=== PATIENT | male | born 1985 | race Caucasian/White ===

== ENCOUNTER 2019-03-07 16:39 | Emergency (ER) | payer MEDICAID ==
[2019-03-07 17:14] VITALS: RESP 20
[2019-03-07] MEDS ORDERED: IBUPROFEN 600 MG TAB PO STA (17:15)
[2019-03-07] MEDS ORDERED: ACETAMINOPHEN TAB 500 MG TAB PO STA (17:15)
[2019-03-07] MEDS ORDERED: diphenhydrAMINE 25 MG CAP PO STA (17:24)
[2019-03-07] MEDS ORDERED: predniSONE 50 MG TAB PO STA (17:24)
--- NOTE | 2019-03-07 17:36 | ED ---
General Adult HPI - General Chief complaint: Upper Respiratory Infection Stated complaint: rash, URI Time Seen by Provider: 03/07/19 17:02 Source: patient, RN notes reviewed, old records reviewed Mode of arrival: ambulatory Limitations: no limitations - History of Present Illness Initial comments: 33 year male presents today for concern for worsening cough congestion. Patient states he's been trying take dpyh-hue-kgufbso medications reports worsening cough. He recently finished an antibiotic of Augmentin for sinusitis and steroids. Patient states that he seems that his cough seems to be worsening. He also complains of low-grade fevers. Patient has had no history of sick contacts. - Related Data Previous Rx's Medication Instructions Recorded Azithromycin [Zithromax Z-pack] 250 mg PO DIRECTED #6 tab 03/07/19 Gmvw-Spon-Bct 6.25-5-10Mg/5Ml 5 ml PO Q4H 3 Days #90 ml 03/07/19 [Phenergan VC with Codeine] predniSONE 50 mg PO DAILY #5 tablet 03/07/19 Allergies Allergy/AdvReac Type Severity Reaction Status Date / Time No Known Allergies Allergy Verified 03/07/19 17:14 Review of Systems ROS Statement: Those systems with pertinent positive or pertinent negative responses have been documented in the HPI. ROS Other: All systems not noted in ROS Statement are negative. Past Medical History Past Medical History: No Reported History History of Any Multi-Drug Resistant Organisms: None Reported Past Surgical History: No Surgical Hx Reported Past Psychological History: No Psychological Hx Reported Smoking Status: Never smoker Past Alcohol Use History: Occasional Past Drug Use History: None Reported General Exam - General Exam Comments Initial Comments: 33 year old male, no distress. Limitations: no limitations General appearance: alert, in no apparent distress Head exam: Present: atraumatic, normocephalic, normal inspection Eye exam: Present: normal appearance, PERRL, EOMI. Absent: scleral icterus, conjunctival injection, periorbital swelling ENT exam: Present: normal exam, mucous membranes moist Neck exam: Present: normal inspection. Absent: tenderness, meningismus, lymphadenopathy Respiratory exam: Present: normal lung sounds bilaterally. Absent: respiratory distress, wheezes, rales, rhonchi, stridor Cardiovascular Exam: Present: regular rate, normal rhythm, normal heart sounds. Absent: systolic murmur, diastolic murmur, rubs, gallop, clicks GI/Abdominal exam: Present: soft, normal bowel sounds. Absent: distended, tenderness, guarding, rebound, rigid Extremities exam: Present: normal inspection, full ROM, normal capillary refill. Absent: tenderness, pedal edema, joint swelling, calf tenderness Back exam: Present: normal inspection Neurological exam: Present: alert, oriented X3, CN II-XII intact Psychiatric exam: Present: normal affect, normal mood Course Vital Signs 03/07/19 03/07/19 17:11 18:25 Temperature 100.0 F H 99.3 F Pulse Rate 119 H 103 H Respiratory 20 20 Rate Blood Pressure 140/82 139/82 O2 Sat by Pulse 97 99 Oximetry Medical Decision Making - Medical Decision Making 33 year old male with cough, fever. Treated with augmentin for sinusitis. Patient at this time has negative flu and normal CXR. Discussed treatment for atypical bacteria with Zpack and close follow up with PCP. Discussed using steriods and cough syrup. - Lab Data Lab Results 03/07/19 Range/Units 17:10 Influenza Type A RNA Not Detected (Not Detectd) Influenza Type B (PCR) Not Detected (Not Detectd) - Radiology Data Radiology results: report reviewed Normal chest. No changes. Disposition Clinical Impression: Hives, Bronchitis Disposition: HOME SELF-CARE Condition: Good Instructions (If sedation given, give patient instructions): Acute Bronchitis (ED) Additional Instructions: Patient has a take the steroids use cough medicine as prescribed. Switching the antibiotic to azithromycin. Recommended close follow-up with her primary care physician. Patient should rest, remain hydrated. Continuing kslu-bgw-pmctzqh decongestants as well. Prescriptions: Ijbe-Ulmk-Yrz 6.25-5-10Mg/5Ml [Phenergan VC with Codeine] 5 ml PO Q4H 3 Days #90 ml predniSONE 50 mg PO DAILY #5 tablet Azithromycin [Zithromax Z-pack] 250 mg PO DIRECTED #6 tab Is patient prescribed a controlled substance at d/c from ED?: No Referrals: None,Stated [Primary Care Provider] - 1-2 days Time of Disposition: 18:16
--- NOTE | 2019-03-07 18:04 | XR ---
EXAMINATION TYPE: XR chest 2V DATE OF EXAM: 03/07/2019 COMPARISON: 09/11/2010 HISTORY: Cough TECHNIQUE: FINDINGS: Heart and mediastinum are normal. Lungs are clear. Diaphragm is normal. Bony thorax appears normal. IMPRESSION: Normal chest. No change.
[2019-03-07 18:34] VITALS: BP 139/82; PULSE 103; TEMP 99.3
== END 2019-03-07 18:25 | disposition home or self-care (01) ==
LOC: EC 16:39
DX: J40 Bronchitis, not specified as acute or chronic (principal); L50.9 Urticaria, unspecified; J32.9 Chronic sinusitis, unspecified
CPT/HCPCS: 99284; 87502; 71046; J7512

== ENCOUNTER → 2019-06-29 | Outpatient (CLI) | payer MEDICAID | END | disposition home or self-care (01) | LOC: LABWHC1 08:34 | PROVIDERS: ATTEND Pediatrics Pediatric Infectious Diseases | DX: Z03.818 Encounter for observation for suspected exposure to other biological agents ruled out (principal) | CPT/HCPCS: 87635 ==

== ENCOUNTER → 2019-07-20 | Outpatient (CLI) | payer MEDICAID | END | disposition home or self-care (01) | LOC: LABWHC1 10:32 | PROVIDERS: ATTEND Pediatrics Pediatric Infectious Diseases | DX: Z11.59 Encounter for screening for other viral diseases (principal) ==

== ENCOUNTER → 2019-07-25 | Outpatient (CLI) | payer MEDICAID | END | disposition home or self-care (01) | LOC: LABWHC1 09:44 | PROVIDERS: ATTEND Pediatrics Pediatric Infectious Diseases | DX: U07.1 COVID-19 (principal) ==

== ENCOUNTER → 2019-07-29 | Outpatient (CLI) | payer MEDICAID ==
--- NOTE | 2019-07-29 14:17 | CT ---
EXAMINATION TYPE: CT abdomen pelvis wo/w con DATE OF EXAM: 07/29/2019 COMPARISON: None. HISTORY: ab pain/diarrhea x 2wks CT DLP: 4615.2 mGycm, Automated Exposure Control for Dose Reduction was Utilized. CONTRAST: CT scan of the abdomen and pelvis is performed with oral and without and with IV Contrast, patient in jected with 100 mL of Isovue 300. FINDINGS: LUNG BASES: No significant abnormality is appreciated. LIVER/GB: Noncontrast images show liver overall heterogeneously hypodense consistent with diffuse fat ty infiltration. PANCREAS: No significant abnormality is seen. SPLEEN: No significant abnormality is seen. ADRENALS: No significant abnormality is seen. KIDNEYS: Noncontrast images show no renal calculi bilaterally. Postcontrast images show symmetric cor tical medullary uptake and excretion without hydronephrosis seen bilaterally. BOWEL: Oral contrast reaches the rectum. No suspicious small or large bowel dilatation is seen. Appen desiree within normal limits from base of cecum extending medially. Stomach is poorly distended and thus suboptimally evaluated as oral contrast has passed through the stomach and duodenal sweep at time of scanning. PROSTATE/SEMINAL VESICLES: No gross abnormality seen. LYMPH NODES: No greater than 1cm abdominal or pelvic lymph nodes are appreciated. Scattered prominen t but subcentimeter lymph nodes throughout the mesentery greatest in the right lower quadrant. For re ference one of largest lymph node measures 1.7 x 1.0 cm axial series 6 image 61. Mild mesenteric fat stranding. OSSEOUS STRUCTURES: Facet arthropathy lower lumbar spine. OTHER: Small to moderate-sized fat-containi ng bilateral inguinal hernias.. IMPRESSION: No bowel obstruction. Possible mesenteric adenitis and/or panniculitis otherwise fairly u nremarkable study.
== END | disposition home or self-care (01) ==
LOC: RADCTMAIN 11:15
PROVIDERS: ATTEND Family Medicine
DX: R10.9 Unspecified abdominal pain (principal)
CPT/HCPCS: 74178; Q9967

== ENCOUNTER 2019-11-08 11:03 | Day surgery (SDC) | payer MEDICAID ==
[2019-11-03 13:09] VITALS: BMI 43.3
[~2019-11-08 11:03] MED LIST: LACTATED RINGERS 1,000 ML IV SCH
[2019-11-08 11:30] VITALS: RESP 16; TEMP 98.5
[2019-11-08] MEDS ORDERED: LIDOCAINE 1% (10MG/ML) FOR IV START INTRADERMA ONE (11:39)
[2019-11-08] MEDS ORDERED: LIDOCAINE 1% INJ 10MG/ML (20 ML MDV) ONE (12:03)
[2019-11-08] MEDS ORDERED: PROPOFOL 10 MG/ML 20 ML VIAL IV ONE (12:03)
--- NOTE | 2019-11-08 12:24 | P.PCN ---
Date of Procedure: 11/08/19 Procedure(s) Performed: PREOPERATIVE DIAGNOSIS: GERD, abdominal pain, change in bowel habits POSTOPERATIVE DIAGNOSIS: Gastritis, normal colon PROCEDURE: 1. EGD with biopsy 2. Colonoscopy ANESTHESIA: MAC SURGEON: Harsha Hansen M.D. SPECIMENS: Antrum ENDOSCOPIC PROCEDURE: The patient was on the endoscopy table in the left decubitus position. The Olympus gastroscope was inserted into the oropharynx and passed under direct visualization to the region of the third portion of the duodenum. From that point the scope was slowly withdrawn inspecting all surfaces carefully. There were no neoplastic inflammatory or polypoid lesions throughout the duodenum. The pylorus was widely patent. The stomach was carefully inspected. There was gastritis present. A biopsy of the antrum took place to rule out H. pylori. Retroflexion revealed a normal hiatus. The esophagus was then carefully examined. There were no neoplastic inflammatory or polypoid lesions throughout the visualized esophagus. The patient was kept on the endoscopy table in the left decubitus position. The Olympus colonoscope was inserted into the anus and passed under direct visualization to the base of the cecum. The appendiceal orifice was visualized. From that point the scope was slowly withdrawn inspecting all surfaces carefully. There were no neoplastic inflammatory or polypoid lesions throughout the cecum, ascending, transverse, descending, sigmoid and rectum. There was no visible diverticulosis noted. The patient's prep was slightly suboptimal. Digital rectal examination was normal. The patient was taken to the recovery room in stable condition per anesthesia guidelines. RECOMMENDATIONS: Begin antiacid therapy. Resume diet. Follow-up colonoscopy age 52.
[2019-11-08 12:46] VITALS: BP 119/76; PULSE 85
== END 2019-11-08 13:00 | disposition home or self-care (01) ==
LOC: ORWHC2ENDO 11:03
PROVIDERS: ATTEND Surgery
DX: K29.50 Unspecified chronic gastritis without bleeding (principal); R19.4 Change in bowel habit; R10.30 Lower abdominal pain, unspecified; R19.7 Diarrhea, unspecified; K40.20 Bilateral inguinal hernia, without obstruction or gangrene, not specified as recurrent; M79.3 Panniculitis, unspecified; E66.9 Obesity, unspecified; K08.89 Other specified disorders of teeth and supporting structures; J30.2 Other seasonal allergic rhinitis; Z79.899 Other long term (current) drug therapy; Z79.811 Long term (current) use of aromatase inhibitors; Z68.42 Body mass index [BMI] 45.0-49.9, adult; Z88.0 Allergy status to penicillin
CPT/HCPCS: 88305; 45378; 43239; J2001; J2704

== ENCOUNTER → 2019-11-09 | Outpatient (CLI) | payer MEDICAID ==
--- NOTE | 2019-11-09 10:44 | FL ---
EXAMINATION TYPE: FL UGI w small bowel DATE OF EXAM: 11/09/2019 COMPARISON: CT abdomen and pelvis July 29, 2019 HISTORY: History of endoscopy and colonoscopy one day earlier presents with increasing lower abdomina l pain and worsening diarrhea per patient. TECHNIQUE: A double contrast UGI study is performed with small bowel follow through. Total 1 minute 5 seconds fluoroscopic time utilized during procedure. 39 images saved to PACS. FINDINGS: Plastics Scientist image of the abdomen shows some paucity of bowel gas especially after colonoscopy on e day earlier. Overall nonobstructive bowel gas pattern felt present. The esophagus shows satisfactory motility and emptying into the stomach. No evidence of fixed hiatal hernia or stricture noted. No suspicious intraluminal mass or diverticulum. Less than optimal distention of stomach without focal ulcer. No marked gastric wall thickening. Moder ate gastroesophageal reflux into distal one third of esophagus with some stasis noted during real-phi e performance of study. The duodenal bulb and sweep are unremarkable. The small bowel study shows normal transit to the colon in less than 30 minutes. There is normal muc osal fold pattern throughout the small bowel. There is no evidence of any stricture or filling defec t noted. The terminal ileum is difficult to visualize due to multiple overlying contrast-filled travon l loops at this level. It is felt likely within normal limits when correlating with recent CT. IMPRESSION: Moderate distal gastroesophageal reflux otherwise unremarkable study.
== END | disposition home or self-care (01) ==
LOC: RADFLMAIN 08:59
PROVIDERS: ATTEND Surgery
DX: K21.9 Gastro-esophageal reflux disease without esophagitis (principal); R10.84 Generalized abdominal pain
CPT/HCPCS: 74240; 74248

== ENCOUNTER 2020-01-24 21:20 | Inpatient (IN) | payer MEDICAID, OTHER ==
[2020-01-24] MEDS ORDERED: ACETAMINOPHEN TAB 325 MG TAB PO STA (21:54)
[2020-01-24] MEDS ORDERED: SODIUM CHLORIDE 0.9% 500 ML 500 ML IV ONE (21:56)
[2020-01-24] MEDS ORDERED: SODIUM CHLORIDE 0.9% 1,000 ML IV ONE (21:56)
--- NOTE | 2020-01-24 22:15 | ED ---
SOB HPI - General Chief Complaint: Shortness of Breath Stated Complaint: +COVID,Cough Time Seen by Provider: 01/24/20 21:44 Source: patient Mode of arrival: ambulatory Limitations: no limitations - History of Present Illness Initial Comments: 34yo male covid +, denies PMH presenting for SOB. Patient states that he has had SOB for the past few day, he states today was the worst which brought him to the ER. Patient states he feels like he cant expand his lungs, admits to sharp chest pain at times. denies leg swelling, calf pain or hemoptysis. patient endorses fevers, sore throat. Denies abdominal pain or vomiting. Pt admits to diarrhea. pt denies additional complaints. upon arrival pt hypoxic. but does not appear in significant respiratory distress. mild dyspnea with long sentences. - Related Data Home Medications Medication Instructions Recorded Confirmed Diphenox-Atrop 2.5-0.025 mg 1 tab PO TID PRN 11/03/19 01/25/20 [Lomotil] Loratadine [Claritin] 10 mg PO DAILY 11/03/19 01/25/20 Montelukast [Singulair] 10 mg PO DAILY 11/03/19 01/25/20 Metaxalone 800 mg PO HS 01/25/20 01/25/20 Omeprazole 40 mg PO DAILY 01/25/20 01/25/20 Rizatriptan Odt [Maxalt Leaf Stamper] 10 mg PO DAILY PRN 01/25/20 01/25/20 Allergies Allergy/AdvReac Type Severity Reaction Status Date / Time Penicillins Allergy Unknown Verified 11/08/19 11:28 Childhood Review of Systems ROS Statement: Those systems with pertinent positive or pertinent negative responses have been documented in the HPI. ROS Other: All systems not noted in ROS Statement are negative. Past Medical History Past Medical History: No Reported History Additional Past Medical History / Comment(s): frequent diarrhea, seasonal allergies History of Any Multi-Drug Resistant Organisms: None Reported Past Surgical History: No Surgical Hx Reported Past Anesthesia/Blood Transfusion Reactions: No Reported Reaction Past Psychological History: No Psychological Hx Reported Smoking Status: Former smoker General Exam - General Exam Comments Initial Comments: General: The patient is awake and alert Eye: +3 mm pupils are equal, round and reactive to light, extra-ocular movements are intact. No nystagmus. There is normal conjunctiva bilaterally. No signs of icterus. Ears, nose, mouth and throat: There are moist mucous membranes and no oral lesions. Neck: The neck is supple, there is no tenderness or JVD. Cardiovascular: There is a regular rate and rhythm. No murmur, rub or gallop is appreciated. Respiratory: Respirations are mildly-labored, breath sounds are equal. No wheezes, stridor. Rhonchi rales appreciated however all over lung sounds diminshed. dry cough Gastrointestinal: Soft, non-distended, non-tender abdomen without masses or organomegaly noted. There is no rebound or guarding present. Musculoskeletal: Normal ROM, no tenderness. Strength 5/5. Sensation intact. Radial and DP pulses equal bilaterally 2+. Neurological: A&O x 3. CN II-XII intact grossly, There are no obvious motor or sensory deficits. Coordination appears grossly intact. Speech is normal. Skin: Skin is warm and dry and no rashes or lesions are noted. no calf pain or LE edema. Psychiatric: Cooperative, appropriate mood & affect, normal judgment. Limitations: no limitations Course Vital Signs 01/24/20 01/24/20 01/24/20 21:35 23:39 23:44 Temperature 102.3 F H 101.7 F H Pulse Rate 102 H 99 Respiratory 18 24 23 Rate Blood Pressure 146/83 128/72 O2 Sat by Pulse 89 L 92 L Oximetry 01/25/20 01/25/20 01/25/20 01:22 03:00 04:00 Temperature 98.7 F 97.8 F Pulse Rate 77 88 58 L Respiratory 20 20 20 Rate Blood Pressure 112/74 115/65 120/68 O2 Sat by Pulse 92 L 89 L 92 L Oximetry 01/25/20 05:36 Temperature Pulse Rate 64 Respiratory 20 Rate Blood Pressure 113/80 O2 Sat by Pulse 93 L Oximetry - Reevaluation(s) Reevaluation #1: current disposition admission, signed out to Heather Abreu pending D-dimer and CMP results. 01/24/20 23:00 Medical Decision Making - Lab Data Result diagrams: 01/24/20 22:32 01/24/20 22:32 Lab Results 01/24/20 01/24/20 01/24/20 Range/Units 22:32 22:32 22:32 WBC 5.2 (3.8-10.6) k/uL RBC 5.34 (4.30-5.90) m/uL Hgb 16.2 (13.0-17.5) gm/dL Hct 46.3 (39.0-53.0) % MCV 86.6 (80.0-100.0) fL MCH 30.3 (25.0-35.0) pg MCHC 35.0 (31.0-37.0) g/dL RDW 12.5 (11.5-15.5) % Plt Count 191 (150-450) k/uL MPV 7.3 Neutrophils % 81 % Lymphocytes % 14 % Monocytes % 2 % Eosinophils % 1 % Basophils % 1 % Neutrophils # 4.2 (1.3-7.7) k/uL Lymphocytes # 0.7 L (1.0-4.8) k/uL Monocytes # 0.1 (0-1.0) k/uL Eosinophils # 0.0 (0-0.7) k/uL Basophils # 0.1 (0-0.2) k/uL PT 10.4 (9.0-12.0) sec INR 1.0 (<1.2) APTT 25.0 (22.0-30.0) sec D-Dimer 1.63 H (<0.60) mg/L FEU Sodium 136 L (137-145) mmol/L Potassium 3.4 L (3.5-5.1) mmol/L Chloride 100 (98-107) mmol/L Carbon Dioxide 30 (22-30) mmol/L Anion Gap 6 mmol/L BUN 11 (9-20) mg/dL Creatinine 0.89 (0.66-1.25) mg/dL Est GFR (CKD-EPI)AfAm >90 (>60 ml/min/1.73 sqM) Est GFR (CKD-EPI)NonAf >90 (>60 ml/min/1.73 sqM) Glucose 105 H (74-99) mg/dL Plasma Lactic Acid Nabil (0.7-2.0) mmol/L Calcium 8.5 (8.4-10.2) mg/dL Magnesium 2.4 H (1.6-2.3) mg/dL Total Bilirubin 0.9 (0.2-1.3) mg/dL AST 187 H (17-59) U/L ALT 113 H (4-49) U/L Alkaline Phosphatase 91 (38-126) U/L Lactate Dehydrogenase 3282 H (313-618) U/L C-Reactive Protein 39.1 H (<10.0) mg/L Total Protein 6.6 (6.3-8.2) g/dL Albumin 3.8 (3.5-5.0) g/dL 01/24/20 Range/Units 22:32 WBC (3.8-10.6) k/uL RBC (4.30-5.90) m/uL Hgb (13.0-17.5) gm/dL Hct (39.0-53.0) % MCV (80.0-100.0) fL MCH (25.0-35.0) pg MCHC (31.0-37.0) g/dL RDW (11.5-15.5) % Plt Count (150-450) k/uL MPV Neutrophils % % Lymphocytes % % Monocytes % % Eosinophils % % Basophils % % Neutrophils # (1.3-7.7) k/uL Lymphocytes # (1.0-4.8) k/uL Monocytes # (0-1.0) k/uL Eosinophils # (0-0.7) k/uL Basophils # (0-0.2) k/uL PT (9.0-12.0) sec INR (<1.2) APTT (22.0-30.0) sec D-Dimer (<0.60) mg/L FEU Sodium (137-145) mmol/L Potassium (3.5-5.1) mmol/L Chloride (98-107) mmol/L Carbon Dioxide (22-30) mmol/L Anion Gap mmol/L BUN (9-20) mg/dL Creatinine (0.66-1.25) mg/dL Est GFR (CKD-EPI)AfAm (>60 ml/min/1.73 sqM) Est GFR (CKD-EPI)NonAf (>60 ml/min/1.73 sqM) Glucose (74-99) mg/dL Plasma Lactic Acid Nabil 1.1 (0.7-2.0) mmol/L Calcium (8.4-10.2) mg/dL Magnesium (1.6-2.3) mg/dL Total Bilirubin (0.2-1.3) mg/dL AST (17-59) U/L ALT (4-49) U/L Alkaline Phosphatase (38-126) U/L Lactate Dehydrogenase (313-618) U/L C-Reactive Protein (<10.0) mg/L Total Protein (6.3-8.2) g/dL Albumin (3.5-5.0) g/dL Disposition Clinical Impression: Hypoxia, Pneumonia due to COVID-19 virus Disposition: ADMITTED IP TO THIS [facility] Condition: Stable Is patient prescribed a controlled substance at d/c from ED?: No Time of Disposition: 00:30 Decision to Admit Reason: Admit from EC Decision Date: 01/25/20 Decision Time: 00:30
[2020-01-24 22:41] LABS: Basophils # (A) 0.1 k/uL (0-0.2); Basophils % (A) 1 %; Eosinophils % (A) 1 %; HCT 46.3 % (39.0-53.0); HGB 16.2 gm/dL (13.0-17.5); Lymphocytes # (A) 0.7 k/uL (1.0-4.8); Lymphocytes % (A) 14 %; MCH 30.3 pg (25.0-35.0); MCV 86.6 fL (80.0-100.0); Mean Platelet Volume 7.3; Monocytes # (A) 0.1 k/uL (0-1.0); Monocytes % (A) 2 %; Neutrophils # (A) 4.2 k/uL (1.3-7.7); Neutrophils % (A) 81 %; Platelet Count 191 k/uL (150-450); RBC 5.34 m/uL (4.30-5.90); RDW 12.5 % (11.5-15.5); WBC 5.2 k/uL (3.8-10.6)
--- NOTE | 2020-01-24 22:44 | XR ---
EXAMINATION TYPE: XR chest 1V portable DATE OF EXAM: 01/24/2020 COMPARISON: 03/07/2019 HISTORY: Pneumonia. Cough. TECHNIQUE: FINDINGS: There is diffuse pulmonary interstitial edema. Heart size is fairly normal. There is no def inite pleural effusion. Bony thorax is intact. IMPRESSION: There is new pulmonary interstitial diffuse pneumonia compared to old exam. Normal heart.
[2020-01-24] MEDS: SODIUM CHLORIDE 0.9% 1,000 ML IV SCH (22:46)
[2020-01-24] MEDS ORDERED: NALOXONE 0.4 MG/ML 1 ML VIAL IV PRN (22:47)
[2020-01-24 22:52] LABS: ALT 113 U/L (4-49); AST 187 U/L (17-59); African American GFR (CKD) >90 (>60 ml/min/1.73 sqM); Albumin 3.8 g/dL (3.5-5.0); Alkaline Phosphatase 91 U/L (38-126); Anion Gap 6 mmol/L; Blood Urea Nitrogen 11 mg/dL (9-20); C Reactive Protein 39.1 mg/L (<10.0); Calcium 8.5 mg/dL (8.4-10.2); Carbon Dioxide 30 mmol/L (22-30); Chloride 100 mmol/L (98-107); Glucose 105 mg/dL (74-99); Magnesium 2.4 mg/dL (1.6-2.3); Non-African American GFR(CKD) >90 (>60 ml/min/1.73 sqM); Potassium 3.4 mmol/L (3.5-5.1); Sodium 136 mmol/L (137-145); Total Bilirubin 0.9 mg/dL (0.2-1.3); Total Protein 6.6 g/dL (6.3-8.2)
[2020-01-24] MEDS ORDERED: DEXAMETHASONE SOD PHOSPHATE 4 MG/ML 1 ML VIAL IV STA (22:53)
[2020-01-24] MEDS ORDERED: AZITHROMYCIN 500 MG in SODIUM CHLORIDE 0.9% 250 ML IVPB STA (22:53)
[2020-01-24 22:55] LABS: Prothrombin Time 10.4 sec (9.0-12.0)
[2020-01-24 22:58] LABS: D-Dimer 1.63 mg/L FEU (<0.60)
[2020-01-24 23:03] LABS: LDH 3282 U/L (313-618)
--- NOTE | 2020-01-24 23:44 | CT ---
EXAMINATION TYPE: CT chest angio for PE DATE OF EXAM: 01/24/2020 COMPARISON: None HISTORY: elevated d-dimer CT DLP: 899.8 mGycm Automated exposure control for dose reduction was used. CONTRAST: Performed with IV Contrast, patient injected with 95 mL of Isovue 370. There are 3-D post processed images. There is extensive patchy bilateral groundglass interstitial edema. Heart is top normal in size. Ther e is no pericardial effusion. There is no pleural effusion. There is some fatty replacement of the li carlos. There is normal contrast opacification of the pulmonary arteries. There are no filling defects. There are a few bilateral bronchial lymph nodes measuring up to 1 cm. There are anterior mediastinal lymph nodes that measure up to 12 mm. Thoracic aorta is intact. There is no aneurysm or dissection. Bony thorax is intact. The sternum is i ntact. IMPRESSION: No evidence of pulmonary embolism. Extensive bilateral groundglass interstitial pneumonia. mediastinal and bronchial lymph nodes likely inflammatory.
[2020-01-25] MEDS: SODIUM CHLORIDE 0.9% 1,000 ML IV SCH (07:40)
[2020-01-25] MEDS ORDERED: DIPHENOX-ATROP 2.5-0.025 MG 1 EACH TAB PO PRN (09:55)
[2020-01-25] MEDS ORDERED: SUMAtriptan succinate 50 MG TAB PO PRN (09:55)
[2020-01-25] MEDS ORDERED: PANTOPRAZOLE 40 MG TABLET PO SCH (10:00)
[2020-01-25 10:55] LABS: Ferritin 1031.7 ng/mL (22.0-322.0)
[2020-01-25] MEDS: LORATADINE 10 MG TAB PO SCH (12:31)
[2020-01-25] MEDS: ASCORBIC ACID 500 MG TAB PO SCH (12:31)
[2020-01-25] MEDS: FAMOTIDINE 20 MG TAB PO SCH ×2 (12:31→22:11)
[2020-01-25] MEDS: MONTELUKAST 10 MG TAB PO SCH (12:31)
[2020-01-25] MEDS: LACTATED RINGERS 1,000 ML IV SCH ×2 (12:32→23:32)
[2020-01-25] MEDS: methylPREDNISolone SOD SUCCI 40 MG/ML 1 ML VIAL IV SCH ×3 (12:32→23:32)
[2020-01-25] MEDS: CHOLECALCIFEROL 1,000 UNIT TAB PO SCH (12:34)
[2020-01-25] MEDS: ENOXAPARIN 120 MG/0.8 ML SYRINGE SQ SCH ×2 (16:00→22:11)
--- NOTE | 2020-01-25 17:58 | CONS ---
CONSULTATION PULMONARY/CRITICAL CARE CONSULTATION: DATE OF SERVICE: 01/25/2020 REASON FOR CONSULTATION: Shortness of breath and COVID-19 pneumonia. This is a 34-year-old gentleman who sees Dr. Valdo Cope. He presented to the emergency room on January 23 complaining of increasing shortness of breath. Apparently last week, he was not feeling well and went for a COVID test. He apparently found out that he was positive on Thursday. Since that time, he has gotten worse. The patient admits to shortness of breath particularly on exertion. In addition, he had muscle aches joint aches, headache, cough, and chest congestion. He feels like he is having a hard time expanding his lungs. The patient feels a bit better today than he did yesterday when he first came in. He is currently on O2 at 2 L. Not receiving any IV fluids. The patient also apparently admitted to some GI issues including some diarrhea. This may or may not relate to the COVID infection. HOME MEDICATIONS: Include Lomotil, Claritin, Singulair, metaxalone, omeprazole, Maxalt-[place]ver. ALLERGIES: PENICILLIN. MEDICAL HISTORY: Chronic diarrhea, migraine cephalgia, allergies, and acid reflux disease. PAST SURGICAL HISTORY: Unremarkable. FAMILY HISTORY: Unremarkable. Both mother and father healthy. SOCIAL HISTORY: Negative for alcohol or illicit drug use. He used to smoke cigarettes but does not smoke currently. OCCUPATIONAL HISTORY: Noncontributory. REVIEW OF SYSTEMS: CONSTITUTIONAL: Muscle aches, joint aches, weakness, fever. HEENT: Negative. NEUROLOGIC: Negative. CARDIOVASCULAR: Negative. PULMONARY: Shortness of breath, cough, chest congestion. GI: Diarrhea. : Negative. RHEUMATOLOGIC: Negative. IMMUNOLOGIC: Negative. ENDOCRINOLOGIC: Negative. DERMATOLOGIC: Negative. PHYSICAL EXAMINATION: VITAL SIGNS: Current vital signs are reviewed. Temperature 98.1, heart rate 77, respiratory rate 17, blood pressure 143/79, 3 L saturation 92%. Appears in no acute distress. HEENT: Examination is grossly unremarkable. NECK: Supple, full range of motion. No adenopathy. Neck veins are flat. CARDIOVASCULAR: Examination reveals regular rhythm rate. S1, S2 normal. No S3, S4, or murmur. LUNGS: Reveal a few scattered rhonchi. No wheezes or crackles. Breath sounds equal. ABDOMEN: Soft. Bowel sounds are heard. EXTREMITIES are intact. No cyanosis, clubbing, or edema. SKIN: Without rash. NEUROLOGIC: Examination is nonfocal. LABS: Reviewed. White count 5.2, hemoglobin 16.2, hematocrit 46.3, platelet count 191,000. PT/INR PTT normal. D-dimer 1.63. Sodium 136, potassium 3.4, chloride 100, CO2 30, anion gap is 6. BUN and creatinine were 11 and 0.89. Glucose 105, calcium 8.5, magnesium 2.4, ferritin 1031.7. AST 187, ALT 113, LDH is 3282. C-reactive protein 39.1. Procalcitonin level is 0.12. Microbiology is negative. A chest x-ray shows bilateral patchy airspace opacities. CT angiogram was negative for PE. It was positive for extensive bilateral ground-glass interstitial pneumonitis consistent with COVID-19 infection. Current medications are reviewed. He is currently on Tylenol, vitamin C, Zithromax, vitamin D3, Decadron, Lovenox, famotidine, lactated Ringer's, loratadine, Solu-Medrol, Singulair, Narcan, and Imitrex. ASSESSMENT: 1. COVID-19 pneumonia with mild hypoxemic respiratory failure. 2. Obesity. 3. History of migraine cephalgia. 4. Gastroesophageal reflux disease. 5. Seasonal allergies. 6. History of frequent diarrhea. PLAN: Will add some zinc to his regimen. He is currently on corticosteroids. I do not think he would be a good candidate for Remdesivir at this time. He seems to be really clinically very stable. We will continue to follow. Prognosis is guarded. A chest x- ray should be repeated in 2 or 3 days and inflammatory markers every 2 or 3 days. Additional recommendations and suggestions are forthcoming. Again, I will add some zinc to his regimen. MMODL / IJN: [id number] /
--- NOTE | 2020-01-25 23:39 | P.HPIM ---
History of Present Illness H&P Date: 01/25/20 Chief Complaint: Short of breath History of presenting complaint: This is a very pleasant 34-year-old patient of Dr. Valdo Cope. About 7 days ago at night he broke out into heavy perspiration. Developed a fever of 104. Since then progressively increasing shortness of breath. This had a cough for about 2 days. Some headaches. No changes. Had some loose stools. Feels tired and rundown. Tested positive for coronary admitted for the same. Has known chronic ALLERGIES and GERD. 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 Review of systems: GEN.: Fever tired EYES: None HEENT: None NECK: None RESPIRATORY: As above CARDIOVASCULAR: None GASTROINTESTINAL: None GENITOURINARY: None MUSCULOSKELETAL: None LYMPHATICS: None HEMATOLOGICAL: None PSYCHIATRY: None NEUROLOGICAL: None Past medical history to include: GERD, ALLERGIES Social history: Lives with his cancer. Is a security coordinator here at the hospital [facility]. Does not smoke or drink alcohol. Denies use of any recreational drugs. Family history: Reviewed, noncontributory to presentation Physical examination: VITAL SIGNS: 102.3, 102, 18, 146/83, 89% room air GENERAL: BMI 44.6, sitting on bed, but tired. EYES: Pupils equal. Conjunctiva normal. HEENT: External appearance of nose and ears normal, oral cavity grossly normal. NECK: JVD not raised; masses not palpable. HEART: First and second heart sounds are normal; no edema. LUNGS: Respiratory rate increased, decreased breath sound mild crackles. ABDOMEN: Soft, nontender, liver spleen not palpable, no masses palpable. PSYCH: Alert and oriented x3; mood and affect normal. NEUROLOGICAL: Cranial nerves grossly intact; no facial asymmetry, power and sensation grossly intact. LYMPHATICS: No lymph nodes palpable in the axilla and neck INVESTIGATIONS, reviewed in the clinical context: White count 5.2 hemoglobin 16.2 platelets 191 lymphocytes decreased at 0.7 D-dimer 1.63 potassium 3.4 creatinine 0.89 ferritin 1031 AST 187 ALT 113 LDH 3282 CRP 39.1 pro-calcitonin 0.12 EKG tracing personally reviewed by me-normal sinus rhythm Chest x-ray film personally reviewed by me-bilateral infiltrates Assessment: -Strongly suspicious for Bilateral COVID 19 pneumonia -Acute hypoxic respiratory failure -Morbid obesity BMI 44.6 -GERD -Sepsis from above -Hypokalemia Plan: Patient started on IV Solu-Medrol. Subcu Lovenox. Will be Dr. Kahn was consulted. Patient be candidate for Remdesivir-to be ordered by pulmonary Past Medical History Past Medical History: No Reported History Additional Past Medical History / Comment(s): frequent diarrhea, seasonal allergies History of Any Multi-Drug Resistant Organisms: None Reported Past Surgical History: No Surgical Hx Reported Past Anesthesia/Blood Transfusion Reactions: No Reported Reaction Past Psychological History: No Psychological Hx Reported Smoking Status: Former smoker - Past Family History Father Family Medical History: No Reported History Additional Family Medical History / Comment(s): Father is healthy Mother Family Medical History: No Reported History Additional Family Medical History / Comment(s): Mother is healthy Medications and Allergies Home Medications Medication Instructions Recorded Confirmed Type Diphenox-Atrop 2.5-0.025 mg 1 tab PO TID PRN 11/03/19 01/25/20 History [Lomotil] Loratadine [Claritin] 10 mg PO DAILY 11/03/19 01/25/20 History Montelukast [Singulair] 10 mg PO DAILY 11/03/19 01/25/20 History Metaxalone 800 mg PO HS 01/25/20 01/25/20 History Omeprazole 40 mg PO DAILY 01/25/20 01/25/20 History Rizatriptan Odt [Maxalt Airfreight Operations Agent] 10 mg PO DAILY PRN 01/25/20 01/25/20 History Allergies Allergy/AdvReac Type Severity Reaction Status Date / Time Penicillins Allergy Unknown Verified 11/08/19 11:28 Childhood Physical Exam Vitals: Vital Signs Temp Pulse Pulse Resp BP BP Pulse Ox 01/25/20 08:00 98 F 77 20 124/78 91 L 01/25/20 05:36 64 20 113/80 93 L 01/25/20 04:00 58 L 20 120/68 92 L 01/25/20 03:00 97.8 F 88 20 115/65 89 L 01/25/20 01:22 98.7 F 77 20 112/74 92 L 01/24/20 23:44 23 01/24/20 23:39 101.7 F H 99 24 128/72 92 L 01/24/20 21:35 102.3 F H 102 H 18 146/83 89 L Intake and Output 01/24/20 01/25/20 01/25/20 22:59 06:59 14:59 Other: Weight 145.15 kg Results CBC & Chem 7: 01/24/20 22:32 01/24/20 22:32 Labs: Abnormal Lab Results - Last 24 Hours (Table) 01/24/20 01/24/20 01/24/20 Range/Units 22:32 22:32 22:32 Lymphocytes # 0.7 L (1.0-4.8) k/uL D-Dimer 1.63 H (<0.60) mg/L FEU Sodium 136 L (137-145) mmol/L Potassium 3.4 L (3.5-5.1) mmol/L Glucose 105 H (74-99) mg/dL Magnesium 2.4 H (1.6-2.3) mg/dL AST 187 H (17-59) U/L ALT 113 H (4-49) U/L Lactate Dehydrogenase 3282 H (313-618) U/L C-Reactive Protein 39.1 H (<10.0) mg/L
[2020-01-26] MEDS: methylPREDNISolone SOD SUCCI 40 MG/ML 1 ML VIAL IV SCH ×3 (08:56→23:40)
[2020-01-26] MEDS: ZINC SULFATE 220 MG CAP PO SCH (08:57)
[2020-01-26] MEDS: LORATADINE 10 MG TAB PO SCH (08:57)
[2020-01-26] MEDS: FAMOTIDINE 20 MG TAB PO SCH ×2 (08:57→19:42)
[2020-01-26] MEDS: ASCORBIC ACID 500 MG TAB PO SCH (08:57)
[2020-01-26] MEDS: MONTELUKAST 10 MG TAB PO SCH (08:57)
[2020-01-26] MEDS: CHOLECALCIFEROL 1,000 UNIT TAB PO SCH (08:58)
[2020-01-26] MEDS: ENOXAPARIN 120 MG/0.8 ML SYRINGE SQ SCH ×2 (08:58→19:42)
[2020-01-26 14:07] VITALS: BMI 44.6
--- NOTE | 2020-01-26 14:20 | P.PN ---
Subjective Progress Note Date: 01/26/20 Principal diagnosis: CoVID 19 pneumonia The patient is seen today 01/26/2020 in follow-up on the regular medical floor. He was seen in consultation by Dr. Kahn yesterday. He was admitted for shortness of breath, fatigue weakness headache and cough. He felt he was having hard time expanding his lungs. He did test positive for CoVID 19 on 01/18/2020. He was outside the window for Remdesivir. Presently he is sitting up at the bedside. Awake and alert in no acute distress. He is feeling a bit better today. He is still on 2 L/m per nasal cannula. He has 0.9 normal saline at 75 ML's per hour. He's been afebrile. Hemodynamically stable. D-dimer 1.15. Influenza screen negative. He is continued on vitamin C, vitamin D, Pepcid, IV Solu-Medrol, zinc. He is on Lovenox. Objective - Vital Signs Vital signs: Vital Signs Temp 97.5 F L 01/26/20 11:00 Pulse 69 01/26/20 11:00 Resp 20 01/26/20 11:00 BP 137/82 01/26/20 11:00 Pulse Ox 94 L 01/26/20 11:00 Intake & Output 01/25/20 01/26/20 01/26/20 18:59 06:59 18:59 Intake Total 1979 1929 Balance 1979 1929 Weight 145.15 kg 145.15 kg Intake: Intake, IV Titration 780 860 Amount Lactated Ringers 1,000 ml 600 @ 75 mls/hr IV .[id number] [facility] Rx#:[id number] Sodium Chloride 0.9% 1, 780 260 000 ml @ 130 mls/hr IV . [id number] [facility] Rx#:[id number] Oral 1200 1070 Other: # Voids 2 2 - Exam GENERAL EXAM: Alert, pleasant 34-year-old gentleman, on 2 L nasal cannula, comfortable in no apparent distress. HEAD: Normocephalic. EYES: Normal reaction of pupils, equal size. NOSE: Clear with pink turbinates. THROAT: No erythema or exudates. NECK: No masses, no JVD. CHEST: No chest wall deformity. LUNGS: Equal air entry with few scattered rhonchi. CVS: S1 and S2 normal with no audible murmur, regular rhythm. ABDOMEN: No hepatosplenomegaly, normal bowel sounds, no guarding or rigidity. SPINE: No scoliosis or deformity SKIN: No rashes CENTRAL NERVOUS SYSTEM: No focal deficits, tone is normal in all 4 extremities. EXTREMITIES: There is no peripheral edema. No clubbing, no cyanosis. Peripheral pulses are intact. - Labs CBC & Chem 7: 01/24/20 22:32 01/24/20 22:32 Labs: Abnormal Lab Results - Last 24 Hours (Table) 01/26/20 Range/Units 09:19 D-Dimer 1.15 H (<0.60) mg/L FEU Microbiology - Last 24 Hours (Table) 01/24/20 22:32 Blood Culture - Preliminary Blood No Growth after 24 hours Assessment and Plan Assessment: 1 Acute hypoxic respiratory failure secondary to CoVID 19 pneumonitis. 2 Elevated inflammatory markers secondary to above 3 Chest esophageal reflux disease 4 History of migraine cephalgia. 5 Seasonal ALLERGIES 6 History of frequent diarrhea 7 Obesity Plan: The patient was seen and evaluated by Dr. Kahn He is currently stable from the pulmonary standpoint Titrate down the FiO2 as tolerated Continue the current treatment plan Repeat chest x-ray in a.m. We will continue to follow I, the cosigning physician, performed a history & physical examination of the patient. Lungs sounds with few scattered rhonchi. Maintaining good O2 saturations in the 90s on 2 L/m per nasal cannula. I discussed the assessment and plan of care with my nurse practitioner, Melissa Adame. I attest to the above note as dictated by her.
[2020-01-26] MEDS: LACTATED RINGERS 1,000 ML IV SCH (16:40)
--- NOTE | 2020-01-26 22:11 | P.PN ---
Progress Note - Text Progress Note Date: 01/26/20 Chief Complaint: Short of breath History of presenting complaint: This is a very pleasant 34-year-old patient of Dr. Valdo Cope. About 7 days ago at night he broke out into heavy perspiration. Developed a fever of 104. Since then progressively increasing shortness of breath. This had a cough for about 2 days. Some headaches. No changes. Had some loose stools. Feels tired and rundown. Tested positive for coronary admitted for the same. Has known chronic ALLERGIES and GERD. 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 Patient was detected coronavirus PCR on January 17. Admitted with COVID 19 pneumonia. Acute hypoxic respiratory failure. Started on IV Solu-Medrol and Lovenox. Today-feeling better. Appetite improving. A bit less short of breath. On 2 L nasal cannula. Has been out of bed. Review of systems: Was done for constitutional, cardiovascular, GI, pulmonary. relevant finding as above Active Medications Ascorbic Acid (Ascorbic Acid 500 Mg Tab) 1,000 mg PO DAILY [facility] Last Admin: 01/26/20 08:57 Dose: 1,000 mg Documented by: Cholecalciferol (Cholecalciferol 1,000 Unit Tab) 1,000 unit PO DAILY [facility] Last Admin: 01/26/20 08:58 Dose: 1,000 unit Documented by: Diphenoxylate HCl/Atropine (Diphenox-Atrop 2.5-0.025 Mg 1 Each Tab) 1 each PO TID PRN PRN Reason: Diarrhea Last Admin: 01/25/20 12:31 Dose: 1 each Documented by: Enoxaparin Sodium (Enoxaparin 120 Mg/0.8 Ml Syringe) 120 mg SQ Q12HR [facility] Last Admin: 01/26/20 19:42 Dose: 120 mg Documented by: Famotidine (Famotidine 20 Mg Tab) 20 mg PO BID [facility] Last Admin: 01/26/20 19:42 Dose: 20 mg Documented by: Lactated Ringer's (Lactated Ringers) 1,000 mls @ 75 mls/hr IV .[id number] [facility] Last Admin: 01/26/20 16:40 Dose: 75 mls/hr Documented by: Loratadine (Loratadine 10 Mg Tab) 10 mg PO DAILY [facility] Last Admin: 01/26/20 08:57 Dose: 10 mg Documented by: Methylprednisolone Sodium Succinate (Methylprednisolone Sod Succi 40 Mg/Ml 1 Ml Vial) 40 mg IV Q8HR [facility] Last Admin: 01/26/20 16:02 Dose: 40 mg Documented by: Montelukast Sodium (Montelukast 10 Mg Tab) 10 mg PO DAILY [facility] Last Admin: 01/26/20 08:57 Dose: 10 mg Documented by: Naloxone HCl (Naloxone 0.4 Mg/Ml 1 Ml Vial) 0.2 mg IV Q2M PRN PRN Reason: Opioid Reversal Sumatriptan Succinate (Sumatriptan Succinate 50 Mg Tab) 100 mg PO DAILY PRN PRN Reason: Migraine Headache Zinc Sulfate (Zinc Sulfate 220 Mg Cap) 220 mg PO DAILY [facility] Last Admin: 01/26/20 08:57 Dose: 220 mg Documented by: Physical examination: VITAL SIGNS: Afebrile, 69, 20, 130s over 82, 94% on 2 L GENERAL: Sitting up in bed, looks better PSYCH: Alert and oriented x3; mood and affect normal. NEUROLOGICAL: Cranial nerves grossly intact; no facial asymmetry, moving all 4 limbs. Rest of the physical exam as per nursing and pulmonary INVESTIGATIONS, reviewed in the clinical context: January 25: D-dimer 1.15, CRP 1.8 White count 5.2 hemoglobin 16.2 platelets 191 lymphocytes decreased at 0.7 D-dimer 1.63 potassium 3.4 creatinine 0.89 ferritin 1031 AST 187 ALT 113 LDH 3282 CRP 39.1 pro-calcitonin 0.12 EKG tracing personally reviewed by me-normal sinus rhythm Chest x-ray film personally reviewed by me-bilateral infiltrates Previous testing: Coronavirus PCR detected on January 17 Assessment: -Bilateral COVID 19 pneumonia-started to improve -Acute hypoxic respiratory failure-slow to respond -Morbid obesity BMI 44.6 -GERD -Sepsis from above -Hypokalemia Plan: Continue IV Solu-Medrol. Subcu Lovenox. Follow with Dr. Kahn from pulmonary.
[2020-01-27 08:57] LABS: Basophils # (A) 0.1 k/uL (0-0.2); Basophils % (A) 1 %; Eosinophils % (A) 0 %; HCT 46.7 % (39.0-53.0); HGB 15.7 gm/dL (13.0-17.5); Lymphocytes # (A) 0.8 k/uL (1.0-4.8); Lymphocytes % (A) 9 %; MCH 29.7 pg (25.0-35.0); MCHC 33.6 g/dL (31.0-37.0); MCV 88.3 fL (80.0-100.0); Mean Platelet Volume 8.1; Monocytes # (A) 0.3 k/uL (0-1.0); Monocytes % (A) 3 %; Neutrophils # (A) 6.8 k/uL (1.3-7.7); Neutrophils % (A) 84 %; Platelet Count 284 k/uL (150-450); RBC 5.29 m/uL (4.30-5.90); RDW 12.8 % (11.5-15.5); WBC 8.1 k/uL (3.8-10.6)
[2020-01-27] MEDS: LACTATED RINGERS 1,000 ML IV SCH (09:11)
[2020-01-27] MEDS: FAMOTIDINE 20 MG TAB PO SCH (09:15)
[2020-01-27] MEDS: ENOXAPARIN 120 MG/0.8 ML SYRINGE SQ SCH (09:15)
[2020-01-27] MEDS: methylPREDNISolone SOD SUCCI 40 MG/ML 1 ML VIAL IV SCH (09:15)
[2020-01-27] MEDS: ASCORBIC ACID 500 MG TAB PO SCH (09:15)
[2020-01-27] MEDS: CHOLECALCIFEROL 1,000 UNIT TAB PO SCH (09:15)
[2020-01-27] MEDS: ZINC SULFATE 220 MG CAP PO SCH (09:15)
[2020-01-27] MEDS: MONTELUKAST 10 MG TAB PO SCH (09:16)
[2020-01-27] MEDS: LORATADINE 10 MG TAB PO SCH (09:16)
--- NOTE | 2020-01-27 09:19 | XR ---
EXAMINATION TYPE: XR chest 1V portable DATE OF EXAM: 01/27/2020 COMPARISON: Prior chest x-ray 01/24/2020 HISTORY: Covid pneumonia, shortness of breath TECHNIQUE: Single frontal view of the chest is obtained. FINDINGS: Bilateral airspace disease is present. There is no pneumothorax or pleural effusion. Heart is at the upper limit of normal for size. IMPRESSION: Correlate for pneumonia.
[2020-01-27 10:58] VITALS: BP 130/89; PULSE 75; RESP 18; TEMP 97.9
--- NOTE | 2020-01-27 14:00 | P.PN ---
Subjective Progress Note Date: 01/27/20 Principal diagnosis: CoVID 19 pneumonia The patient is seen today 01/26/2020 in follow-up on the regular medical floor. He was seen in consultation by Dr. Kahn yesterday. He was admitted for shortness of breath, fatigue weakness headache and cough. He felt he was having hard time expanding his lungs. He did test positive for CoVID 19 on 01/18/2020. He was outside the window for Remdesivir. Presently he is sitting up at the bedside. Awake and alert in no acute distress. He is feeling a bit better today. He is still on 2 L/m per nasal cannula. He has 0.9 normal saline at 75 ML's per hour. He's been afebrile. Hemodynamically stable. D-dimer 1.15. Influenza screen negative. He is continued on vitamin C, vitamin D, Pepcid, IV Solu-Medrol, zinc. He is on Lovenox. The patient is seen today 01/27/2020 in follow-up on the regular medical floor. He is awake and alert in no acute distress. He is maintaining O2 saturations in the 90 on room air. He's been afebrile. Hemodynamically stable. Chest x-ray continues to show bilateral airspace disease. White count 8.1. Hemoglobin 15.7. D-dimer 1.59. He remains on Lovenox, IV Solu-Medrol, vitamin C, vitamin D, Pepcid, zinc. He is anxious to go home. Objective - Vital Signs Vital signs: Vital Signs Temp 97.9 F 01/27/20 10:29 Pulse 75 01/27/20 10:29 Resp 18 01/27/20 10:29 BP 130/89 01/27/20 10:29 Pulse Ox 96 01/27/20 11:57 Intake & Output 01/26/20 01/27/20 01/27/20 18:59 06:59 18:59 Intake Total 825 Balance 825 Weight 145.15 kg Intake: Intake, IV Titration 825 Amount Lactated Ringers 1,000 ml 825 @ 75 mls/hr IV .[id number] [facility] Rx#:[id number] Other: Voiding Method Toilet # Voids 2 - Exam GENERAL EXAM: Alert, pleasant 34-year-old gentleman, on room air, comfortable in no apparent distress. HEAD: Normocephalic. EYES: Normal reaction of pupils, equal size. NOSE: Clear with pink turbinates. THROAT: No erythema or exudates. NECK: No masses, no JVD. CHEST: No chest wall deformity. LUNGS: Equal air entry with few scattered rhonchi. CVS: S1 and S2 normal with no audible murmur, regular rhythm. ABDOMEN: No hepatosplenomegaly, normal bowel sounds, no guarding or rigidity. SPINE: No scoliosis or deformity SKIN: No rashes CENTRAL NERVOUS SYSTEM: No focal deficits, tone is normal in all 4 extremities. EXTREMITIES: There is no peripheral edema. No clubbing, no cyanosis. Peripheral pulses are intact. - Labs CBC & Chem 7: 01/27/20 08:05 01/24/20 22:32 Labs: Abnormal Lab Results - Last 24 Hours (Table) 01/26/20 01/27/20 01/27/20 Range/Units 09:19 08:05 08:05 Lymphocytes # 0.8 L (1.0-4.8) k/uL D-Dimer 1.59 H (<0.60) mg/L FEU C-Reactive Protein 1.8 H (0.0-0.8) mg/dL Microbiology - Last 24 Hours (Table) 01/24/20 22:32 Blood Culture - Preliminary Blood No Growth after 48 hours Assessment and Plan Assessment: 1 Acute hypoxic respiratory failure secondary to CoVID 19 pneumonitis. 2 Elevated inflammatory markers secondary to above 3 Chest esophageal reflux disease 4 History of migraine cephalgia. 5 Seasonal ALLERGIES 6 History of frequent diarrhea 7 Obesity Plan: The patient was seen and evaluated by Dr. Kahn Chest x-ray and labs reviewed Cleared for discharge from the pulmonary standpoint Follow-up closely with his PCP I, the cosigning physician, performed a history & physical examination of the patient. Lungs sounds with few scattered rhonchi. Maintaining good O2 saturati ons in the 90s on 2 L/m per nasal cannula. I discussed the assessment and plan of care with my nurse practitioner, Melissa Adame. I attest to the above note as dictated by her.
--- NOTE | 2020-01-28 11:00 | P.DS ---
Providers Date of admission: 01/24/20 22:57 Expected date of discharge: 01/27/20 Attending physician: Dex Khan Consults: 01/24/20 22:49 Consult Physician Routine Consulting Provider: Tony Kahn Consult Reason/Comments: hypoxic covid pneumonia Do you want consulting provider notified?: Yes Primary care physician: Valdo Cope [facility] Course: Chief Complaint: Short of breath History of presenting complaint: This is a very pleasant 34-year-old patient of Dr. Valdo Cope. About 7 days ago at night he broke out into heavy perspiration. Developed a fever of 104. Since then progressively increasing shortness of breath. This had a cough for about 2 days. Some headaches. No changes. Had some loose stools. Feels tired and rundown. Tested positive for coronary admitted for the same. Has known chronic ALLERGIES and GERD. 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 Patient was detected coronavirus PCR on January 17. Admitted with COVID 19 pneumonia. Acute hypoxic respiratory failure. Started on IV Solu-Medrol and Lovenox. Supplements including zinc Pepcid vitamin C added. Patient gradually did improve. Today-by often patient's pulse ox was 96% room air. Patient doing well. Eating well. Care was discussed with patient detail. Questions answered. Cleared by pulmonary. Patient to quarantine as directed. Discussion and discharge planning more than 35 minutes Consultation: Dr. Kahn from pulmonary Physical examination: VITAL SIGNS: Afebrile, 75, 18, 130/89, 96% on room air GENERAL: Sitting up in chair, comfortable PSYCH: Alert and oriented x3; mood and affect normal. NEUROLOGICAL: Cranial nerves grossly intact; no facial asymmetry, moving all 4 limbs. Rest of the physical exam as per nursing and pulmonary INVESTIGATIONS, reviewed in the clinical context: January 26: White count 8.1 hemoglobin 15.7 d-dimer 1.59 CRP 0.6 January 25: D-dimer 1.15, CRP 1.8 White count 5.2 hemoglobin 16.2 platelets 191 lymphocytes decreased at 0.7 D-dimer 1.63 potassium 3.4 creatinine 0.89 ferritin 1031 AST 187 ALT 113 LDH 3282 CRP 39.1 pro-calcitonin 0.12 EKG tracing personally reviewed by me-normal sinus rhythm Chest x-ray film personally reviewed by me-bilateral infiltrates Previous testing: Coronavirus PCR detected on January 17 Assessment: -Bilateral COVID 19 pneumonia- POA -Acute hypoxic respiratory failure, from pneumonia-POA, resolved -Morbid obesity BMI 44.6 -GERD -Sepsis from above -Hypokalemia Disposition: Home Patient Condition at Discharge: Stable Plan - Discharge Summary Discharge Rx Participant: No New Discharge Prescriptions: New dexAMETHasone [Dexamethasone] 6 mg PO DAILY #18 tablet Zinc Sulfate [Orazinc] 220 mg PO DAILY #30 cap Famotidine [Pepcid] 20 mg PO BID #60 tab Ascorbic Acid [Vitamin C] 1,000 mg PO DAILY #30 tab Cholecalciferol [Vitamin D3 (25 Mcg = 1000 Iu)] 1,000 unit PO DAILY #30 tab Continue Montelukast [Singulair] 10 mg PO DAILY Loratadine [Claritin] 10 mg PO DAILY Diphenox-Atrop 2.5-0.025 mg [Lomotil] 1 tab PO TID PRN PRN Reason: Diarrhea Rizatriptan Odt [Maxalt SPREADING MACHINE OPERATOR] 10 mg PO DAILY PRN PRN Reason: Migraine Headache Omeprazole 40 mg PO DAILY Metaxalone 800 mg PO HS Discharge Medication List Diphenox-Atrop 2.5-0.025 mg [Lomotil] 1 tab PO TID PRN 11/03/19 [History] Loratadine [Claritin] 10 mg PO DAILY 11/03/19 [History] Montelukast [Singulair] 10 mg PO DAILY 11/03/19 [History] Metaxalone 800 mg PO HS 01/25/20 [History] Omeprazole 40 mg PO DAILY 01/25/20 [History] Rizatriptan Odt [Maxalt SPREADING MACHINE OPERATOR] 10 mg PO DAILY PRN 01/25/20 [History] Ascorbic Acid [Vitamin C] 1,000 mg PO DAILY #30 tab 01/27/20 [Rx] Cholecalciferol [Vitamin D3 (25 Mcg = 1000 Iu)] 1,000 unit PO DAILY #30 tab 01/27/20 [Rx] Famotidine [Pepcid] 20 mg PO BID #60 tab 01/27/20 [Rx] Zinc Sulfate [Orazinc] 220 mg PO DAILY #30 cap 01/27/20 [Rx] dexAMETHasone [Dexamethasone] 6 mg PO DAILY #18 tablet 01/27/20 [Rx] Follow up Appointment(s)/Referral(s): Valdo Cope MD [Primary Care Provider] - 02/01/20 1:00 pm (This will be a [facility] visit via phone they will call before your actual visit.) Tony Kahn DO [Doctor of Osteopathic Medicine] - 03/01/20 1:00 pm Patient Instructions/Handouts: Famotidine (By mouth), Zinc Sulfate (By mouth), Ascorbic Acid (By mouth), Dexamethasone (By mouth), Cholecalciferol (By mouth), Hypoxia (GEN) Activity/Diet/Wound Care/Special Instructions: dc if ok with dr Kahn Discharge Disposition: HOME SELF-CARE
== END 2020-01-27 14:41 | disposition home or self-care (01) | DRG 871 ==
LOC: EC 21:20 → 4SSUR 22:57 → 6NMEDSUR 01-25 03:42
PROVIDERS: ADMIT Hospitalist; ATTEND Hospitalist
DX: A41.89 Other specified sepsis (principal); U07.1 COVID-19; J96.01 Acute respiratory failure with hypoxia; J12.89 Other viral pneumonia; Z68.41 Body mass index [BMI] 40.0-44.9, adult; K21.9 Gastro-esophageal reflux disease without esophagitis; E66.01 Morbid (severe) obesity due to excess calories; G43.909 Migraine, unspecified, not intractable, without status migrainosus; E87.6 Hypokalemia; J30.2 Other seasonal allergic rhinitis; Z79.01 Long term (current) use of anticoagulants; Z79.899 Other long term (current) drug therapy; Z87.891 Personal history of nicotine dependence; Z88.0 Allergy status to penicillin
CPT/HCPCS: 36415; 71045; 71275; 80053; 82728; 83605; 83615; 83735; 84145; 85025; 85379; 85610; 85730; 86140; 87040; 87502; 93005; 96361; 96365; 96375; 99285

== ENCOUNTER → 2020-02-28 | Outpatient (CLI) | payer MEDICAID ==
--- NOTE | 2020-02-28 18:00 | ECHOF ---
Referral Reason:R06.09 Dyspnea on exertion MEASUREMENTS -------- HEIGHT: 182.9 cm WEIGHT: 131.5 kg BP: RVIDd: 3.0 cm (< 3.3) IVSd: 1.1 cm (0.6 - 1.1) LVIDd: 3.6 cm (3.9 - 5.3) LVPWd: 1.2 cm (0.6 - 1.1) IVSs: 1.8 cm LVIDs: 2.1 cm LVPWs: 1.6 cm LAESV Index (A-L): 13.94 ml/m Ao Diam: 2.6 cm (2.0 - 3.7) AV Cusp: 2.1 cm (1.5 - 2.6) LA Diam: 3.1 cm (2.7 - 3.8) MV E Edinson: 1.03 m/s MV DecT: 161 ms MV A Edinson: 0.73 m/s MV E/A Ratio: 1.41 RAP: 5.00 mmHg RVSP: 13.29 mmHg FINDINGS -------- This was a technically difficult study with suboptimal views. The left ventricular size is normal. There is mild concentric left ventricular hypertrophy. Overa ll left ventricular systolic function is normal with, an EF between 55 - 60 %. The right ventricle is normal in size. The left atrial size is normal. Normal LA size by volume 22+/-6 ml/m2. The right atrial size is normal. Lumason used The aortic valve is trileaflet and appears structurally normal. The mitral valve is normal. There is trace mitral regurgitation. The tricuspid valve appears structurally normal. Trace tricuspid regurgitation present. Right mónica tricular systolic pressure is normal at < 35 mmHg. There is no pulmonic regurgitation present. The aortic root size is normal. IVC Not well visulized. There is no pericardial effusion. CONCLUSIONS -------- 1. The left ventricular size is normal. 2. There is mild concentric left ventricular hypertrophy. 3. Overall left ventricular systolic function is normal with, an EF between 55 - 60 %. 4. There is trace mitral regurgitation. 5. Trace tricuspid regurgitation present. 6. There is no pulmonic regurgitation present. 7. There is no pericardial effusion. APPLICATION SECURITY CONSULTANT: Gracy Jauregui RDCS
== END | disposition home or self-care (01) ==
LOC: RADECHMAIN 14:39
PROVIDERS: ATTEND Nurse Practitioner Adult Health
DX: I51.7 Cardiomegaly (principal)
CPT/HCPCS: 93306; Q9950

== ENCOUNTER → 2020-03-01 | Outpatient (CLI) | payer MEDICAID ==
--- NOTE | 2020-03-01 15:39 | CT ---
EXAMINATION TYPE: CT angio chest DATE OF EXAM: 03/01/2020 COMPARISON: 01/24/2020 HISTORY: 34-year-old male SOB post covid x4 weeks ago TECHNIQUE: Contiguous axial scanning of the chest performed with IV Contrast, patient injected with 8 0 mL of Isovue 370. Coronal/sagittal MIP reconstructions performed. CT DLP: 557.5 mGycm Automated exposure control for dose reduction was used. FINDINGS: Heart normal size without pericardial effusion. No flattening of the interventricular septum or reflu x of contrast into the hepatic veins. Aorta normal caliber with a convex arch vessel branching anatomy. Numerous nonenlarged mediastinal lymph nodes similar to slightly smaller from previous. Some mildly e nlarged right hilar lymph nodes remain measuring up to 1 cm. There is suboptimal contrast bolus with attenuation of 200 Hounsfield units. There is also a sesamoid al is artifact from patient's large body habitus limiting the evaluation. No large central or lobar b ranch embolus. Many of the segmental and more distal arterial branches are nondiagnostic, for example , left lower lobe axial image 74 and coronal image 103 and emboli in these locations cannot be adequa tely excluded on the basis of this exam. Hazy dependent atelectasis. There is some mosaic attenuation suggesting the right middle lobe, axial image 78 and mild diffuse bronchial wall thickening. The extensive bilateral groundglass infiltrates seen on 01/24/2020 have resolved. Visualized upper abd omen shows hepatic steatosis. Bones: No osseous destructive process. IMPRESSION: 1. SUBOPTIMAL CONTRAST BOLUS, LARGE PATIENT BODY HABITUS, AND SOME MILD BREATHING MOTION ALL LIMIT SESSMENT FOR PULMONARY EMBOLUS. NO LARGE CENTRAL OR LOBAR BRANCH EMBOLUS. MANY OF THE SEGMENTAL AND M ORE DISTAL ARTERIAL BRANCHES ARE NONDIAGNOSTIC AND EMBOLI IN THESE LOCATIONS CANNOT BE EXCLUDED ON TH E BASIS OF THIS EXAM, FOR EXAMPLE, WITHIN THE LEFT LOWER LOBE, AXIAL IMAGE 74 AND CORONAL IMAGE 103. FURTHER CLINICAL CORRELATION WILL BE NEEDED. 2. PREVIOUS COVID PNEUMONITIS HAS RESOLVED. THERE IS SOME MILD CENTRAL BRONCHIAL WALL THICKENING, MOS AIC ATTENUATION IN THE RIGHT MIDDLE LOBE, AND PROMINENT DEPENDENT ATELECTASIS. FINDINGS MAY REFLECT B RONCHITIS OR ASTHMA. CLINICALLY CORRELATE. 3. MARKED HEPATIC STEATOSIS.
== END | disposition home or self-care (01) ==
LOC: RADCTMAIN 14:59
PROVIDERS: ATTEND Internal Medicine Critical Care Medicine
DX: J98.09 Other diseases of bronchus, not elsewhere classified (principal); I26.99 Other pulmonary embolism without acute cor pulmonale; J98.11 Atelectasis; Z88.1 Allergy status to other antibiotic agents; Z88.0 Allergy status to penicillin
CPT/HCPCS: 71275; Q9967

== ENCOUNTER → 2021-09-03 | Outpatient (CLI) | payer OTHER ==
[~2021-09-03] MED LIST changes: +BEBTELOVIMAB (EUA) 175 MG/2 ML VIAL IV ONE; -LACTATED RINGERS 1,000 ML IV SCH; +SODIUM CHLORIDE 0.9% 500 ML 500 ML in EMPTY BAG 1 BAG IV PRN
[2021-09-03 14:10] VITALS: PULSE 89; RESP 16; TEMP 98.6
[2021-09-03 15:12] VITALS: BP 110/76
== END | disposition home or self-care (01) ==
LOC: PROCWHC3 13:22
PROVIDERS: ATTEND Nurse Practitioner Adult Health
DX: U07.1 COVID-19 (principal)
CPT/HCPCS: Q0222; M0222

== ENCOUNTER → 2021-11-28 | Outpatient (CLI) | payer OTHER ==
--- NOTE | 2021-11-28 12:33 | CA ---
Transthoracic Echo Report Name: Dani Cuevas Age: 36 Gender: M : 1985 Exam Date: 11/28/2021 10:12 Exam Location: [place] [facility] Ht (in): 61 Wt (lb): 320 Ordering Physician: Valod Cope MD Attending/Referring Phys: Christine Frazier [facility] Cardroom Hand Regina Ricci RDCS Procedure CPT: Indications: R00.0 tachycardia Cardiac Hx: Technical Quality: Technically difficult study Contrast 1: Lumason Total Dose (mL): 4 Contrast 2: Total Dose (mL): MEASUREMENTS (Male / Female) Normal Values 2D ECHO LV Diastolic Diameter PLAX 4.3 cm 4.2 - 5.9 / 3.9 - 5.3 cm LV Systolic Diameter PLAX 2.8 cm IVS Diastolic Thickness 1.5 cm 0.6 - 1.0 / 0.6 - 0.9 cm LVPW Diastolic Thickness 1.2 cm 0.6 - 1.0 / 0.6 - 0.9 cm LV Relative Wall Thickness 0.6 RV Internal Dim ED PLAX 3.0 cm LA Volume 35.9 cm??? 18 - 58 / 22 - 52 cm??? M-MODE Aortic Root Diameter MM 3.1 cm LA Systolic Diameter MM 3.6 cm LA Ao Ratio MM 1.2 AV Cusp Separation MM 2.0 cm DOPPLER AV Peak Velocity 119.6 cm/s AV Peak Gradient 5.7 mmHg LVOT Peak Velocity 103.7 cm/s LVOT Peak Gradient 4.3 mmHg MV Area PHT 4.1 cm??? Mitral E Point Velocity 93.5 cm/s Mitral A Point Velocity 65.1 cm/s Mitral E to A Ratio 1.4 MV Deceleration Time 186.9 ms MV E' Velocity 8.7 cm/s Mitral E to MV E' Ratio 10.7 TR Peak Velocity 162.6 cm/s TR Peak Gradient 10.6 mmHg Right Ventricular Systolic Press 15.6 mmHg FINDINGS Left Ventricle Moderately increased left ventricular wall thickness. Normal left ventricular systolic function with no obvious regional wall motion abnormalities. Left ventricular ejection fraction is estimated at 55-60 %. Right Ventricle Normal right ventricular size and function. Right ventricular systolic pressure within normal limits. Right Atrium Normal right atrial size. Left Atrium Normal left atrial size. No evidence for an atrial septal defect. Mitral Valve No mitral stenosis, regurgitation or prolapse. Aortic Valve Aortic valve not well visualized. Tricuspid Valve Mild tricuspid regurgitation.structurally normal tricuspid valve. Pulmonic Valve Pulmonic valve not well visualized. Pericardium No pericardial effusion. Aorta Normal size aortic root and proximal ascending aorta. CONCLUSIONS Technically difficult study. Lumason ECHO contrast used for improved visualization of the endocardial borders (inadequate visualization of two or more contiguous segments). 1. Normal left ventricle size and systolic function 2. Mild tricuspid regurgitation Previewed by: Dr. Terry Tapia MD (Electronically Signed) Final Date: 28 November 2021 12:32
== END | disposition home or self-care (01) ==
LOC: RADECHMAIN 09:48
PROVIDERS: ATTEND Family Medicine
DX: R00.0 Tachycardia, unspecified (principal)
CPT/HCPCS: 93306; Q9950

== ENCOUNTER → 2023-06-05 | Outpatient (CLI) | payer OTHER ==
--- NOTE | 2023-06-06 10:38 | MR ---
EXAMINATION TYPE: MR lumbar spine wo con DATE OF EXAM: 06/05/2023 9:43 PM CLINICAL INDICATION:Male, 37 years old with history of M43.16 SPONDYLOLISTHESIS, LUMBAR REGION, Low b ack pain into left side since 03-20-2023, Weakness COMPARISON: None TECHNIQUE: Multi planar, multi sequence imaging was performed utilizing: T1-weighted, T2-weighted, a nd turbo inversion recovery imaging of the lumbar spine. IV Contrast: cc . (None if empty) FINDINGS: Alignment: The lumbar vertebral bodies have preserved heights and alignment. 1. Cord: The conus medullaris and the distal spinal cord appear unremarkable with regards to their s ignal intensity and morphology. There is small caliber of the thecal sac size extending from L1 to L5 which is likely congenital. Bones/Discs: Mild degeneration changes throughout the spine with osteophyte formation and facet joint arthropathy. Intervertebral disc signal is maintained. T12-L1: No evidence of significant spinal canal stenosis or neural foraminal stenosis. L1-L2: No evidence of significant spinal canal stenosis or neural foraminal stenosis. L2-L3: Disc bulge and facet joint arthropathy result in mild spinal canal and mild to moderate bilate ral neural foraminal stenosis. L3-L4: Disc bulge and facet joint arthropathy result in mild spinal canal and moderate bilateral neur al foraminal stenosis. L4-L5: Disc bulge and facet joint arthropathy result in mild to moderate spinal canal and moderate to severe left bilateral neural foraminal stenosis. L5-S1: Disc bulge and facet joint arthropathy result in mild spinal canal and mild bilateral neural f oraminal stenosis. No significant spinal canal or neural foraminal stenosis in the remainder of the visualized levels. Other findings: None. IMPRESSION: 1. Disc bulge and facet joint arthropathy with moderate to severe left L4-L5 neural foraminal stenos is. 2. Multilevel degeneration changes throughout the remainder the spine with small caliber of thecal s ac extending from L1 through L5.
== END | disposition home or self-care (01) ==
LOC: RADMRIMAIN 21:00
PROVIDERS: ATTEND Orthopaedic Surgery
DX: M43.16 Spondylolisthesis, lumbar region (principal); M54.16 Radiculopathy, lumbar region; M47.816 Spondylosis without myelopathy or radiculopathy, lumbar region; M62.81 Muscle weakness (generalized); M99.73 Connective tissue and disc stenosis of intervertebral foramina of lumbar region; M51.36 Other intervertebral disc degeneration, lumbar region
CPT/HCPCS: 72148

== ENCOUNTER → 2024-04-28 | Outpatient (CLI) | payer OTHER ==
[2024-04-28 15:20] VITALS: BP 131/87; PULSE 85; RESP 16; TEMP 97.9
--- NOTE | 2024-04-28 15:36 | P.PAINCN ---
History of Present Illness - Reason for Consult Consult date: 04/28/24 - History of Present Illness This is 38 years old male with a chronic history of severe low back pain, patient reported that the pain started 2 years ago, after he was twisting at work(eating a pocket) he started having this back pain, and is constant increased with any activity, increased with any movement bending twisting, patient tried physical therapy without any significant benefit, and he did home exercise without any benefit, tried medication management without any significant benefit he continued to have severe low back pain, the pain is not radiated to the lower extremity, he denies any fever or night sweats, no change in the bowel movement or urination but he feels some weakness in the lower extremity, density of the pain interferes with the quality of life and with activity of daily living patient tried Lyrica 150 mg twice a day without any significant benefit and he tried methocarbamol 750 3 times a day without any benefit. Past Medical History Past Medical History: No Reported History Additional Past Medical History / Comment(s): frequent diarrhea, seasonal allergies History of Any Multi-Drug Resistant Organisms: None Reported Past Surgical History: No Surgical Hx Reported Additional Past Surgical History / Comment(s): EGD/colonoscopy Past Anesthesia/Blood Transfusion Reactions: No Reported Reaction Past Psychological History: No Psychological Hx Reported Additional Psychological History / Comment(s): Pt resides with his significant other. He is independent. Smoking Status: Former smoker Past Alcohol Use History: None Reported Additional Past Alcohol Use History / Comment(s): Pt states years ago, he would occasionally smoke a cigarette but did this very little. Past Drug Use History: None Reported - Past Family History Father Family Medical History: No Reported History Additional Family Medical History / Comment(s): Father is healthy Mother Family Medical History: No Reported History Additional Family Medical History / Comment(s): Mother is healthy Medications and Allergies Home Medications Medication Instructions Recorded Confirmed Type Diphenox-Atrop 2.5-0.025 mg 1 tab PO TID PRN 11/03/19 04/28/24 History [Lomotil] Metaxalone [Skelaxin] 800 mg PO HS 01/25/20 04/28/24 History Rizatriptan Odt [Maxalt [employer]] 10 mg PO DAILY PRN 01/25/20 04/28/24 History Ascorbic Acid [Vitamin C] 1,000 mg PO DAILY #30 tab 01/27/20 04/28/24 Rx Cholecalciferol [Vitamin D3 (25 1,000 unit PO DAILY #30 tab 01/27/20 04/28/24 Rx Mcg = 1000 Iu)] Citalopram Hydrobromide [CeleXA] 1 tab PO DAILY 04/28/24 04/28/24 History Cyclobenzaprine [Flexeril] 1 tab PO TID PRN 04/28/24 04/28/24 History Gabapentin [Neurontin] 1 capsule PO DIRECTED 04/28/24 04/28/24 History Metoprolol Tartrate 1 tab PO DAILY 04/28/24 04/28/24 History diazePAM [Valium] 5 mg PO ONCE PRN 1 Days #1 tab 04/28/24 Rx predniSONE [Deltasone] 20 mg PO BID 04/28/24 04/28/24 History Allergies Allergy/AdvReac Type Severity Reaction Status Date / Time amoxicillin Allergy Rash/Hives Verified 04/28/24 14:55 azithromycin Allergy Rash/Hives Verified 04/28/24 14:55 Penicillins Allergy Unknown Verified 04/28/24 14:55 Childhood sulfamethoxazole Allergy Rash/Hives Verified 04/28/24 14:55 [From Bactrim] trimethoprim [From Bactrim] Allergy Rash/Hives Verified 04/28/24 14:55 Physical Exam Vitals: Vital Signs Temp Pulse Resp BP 04/28/24 15:13 97.9 F 85 16 131/87 Intake and Output 04/28/24 04/28/24 04/28/24 06:59 14:59 22:59 Other: Weight 124.738 kg Physical Examinations : -Constitutiona : Cooperative , not in acute distress . -HEENT : nech : supple , no Lymphadenopathy , normal thyroid size . : eyes : no ptosis , no icterus, no photophobia . - neurologic : Cranial nerve II to XII intact , no focal neurological deffecit . -psychatric : alert , oriented X 3 , appropriate affect , intact judgment and insight . -Lymphatic : no Lymphadenopathy . - musculoskeltal : Lumber spine moter stegnth lower extremities ,thigh and legs 5/5 Right side , 5/5 Left side deep tendon reflexes : normal Knee Jerk , normal ankle Jerk lumber facet Loading Test =positive Right , positive Left Range of motion of the lumbar spine Flexion 30 degrees, extension 10 degrees strait leg raising test = positive at 30 degree bilateral Fabere test= positive Right , and positive LT . Results Comments: MRI lumbar spine 3 4 bulging disc and facet arthropathy and lumbar spinal stenosis and bilateral neural foraminal stenosis, L4-5 bulging disc and facet arthropathy and spinal canal stenosis and bilateral foraminal stenosis L5-S1 lumbar bulging disc and facet joint arthropathy and lumbar spinal stenosis Assessment and Plan Plan: Assessment and plan= chronic low back pain secondary to=1- lumbar spinal stenosis,2- lumbar spondylosis with lumbar facet arthropathy . 3- lumbar foraminal stenosis, 4- lumbar bulging disc disease. Continue to have severe low back pain after medication management and after physical therapy Patient could benefit from lumbar epidural steroid injection at L4-5 level. Procedure risk and benefit and alternative discussed with the patient he agreed with the proceeding Time with Patient: Greater than 30 PQRS Measure Charge Sheet Measure #130: Documentation of Current Meds in Medical Chart: Patient's medications documented in chart Measure #226: Tobacco Use: Screen & Cessation Intervention: Pt not a tobacco user Measure #111: Pneumonia Vaccination: Pneumococcal vaccine NOT administered or previously given Measure #47: Advance Care Plan: Advance care planning discussed & documented, plan or surrogate given Measure #412: Opioid Treatment Agreement: No documentation of signed opioid treatment agreement Measure #408: Opioid Therapy Follow-up Evaluation: Patient had f/u eval minimum every 3 months during opioid therapy Measure #317: Preventitive Care & Scrn High Bld Press & F/U: Normal blood pressure, f/u not required Measure #128: Body Mass Index (BMI) Screening & Follow-up: BMI documented ABOVE normal parameters - f/u documented Measure #131: Pain Assessment & Follow-up: Pain positive & plan documented, Follow-up scheduled Measure #431: Unhealthy Alcohol Use Preventative Care & Scrn: Patient not identified as an unhealthy alcohol user Mode of Arrival: Ambulatory - Pain Location Right Lower Posterior Back Non-Pharmacological Interventions: Position/Reposition Pharmacological Interventions: Discuss Pain Med Options PQRS Narrative: Smoking Status Never smoker Blood Pressure 131/87 Pain Intensity [Right Lower 6 Posterior Back] Scale Used Numeric (1 - 10) Hx Alcohol Use (MH) No Home Medications: Ambulatory Orders Diphenox-Atrop 2.5-0.025 mg [Lomotil] 1 tab PO TID PRN 11/03/19 Metaxalone [Skelaxin] 800 mg PO HS 01/25/20 Rizatriptan Odt [Maxalt [employer]] 10 mg PO DAILY PRN 01/25/20 Ascorbic Acid [Vitamin C] 1,000 mg PO DAILY #30 tab 01/27/20 Cholecalciferol [Vitamin D3 (25 Mcg = 1000 Iu)] 1,000 unit PO DAILY #30 tab 01/27/20 Citalopram Hydrobromide [CeleXA] 1 tab PO DAILY 04/28/24 Cyclobenzaprine [Flexeril] 1 tab PO TID PRN 04/28/24 Gabapentin [Neurontin] 1 capsule PO DIRECTED 04/28/24 Metoprolol Tartrate 1 tab PO DAILY 04/28/24 diazePAM [Valium] 5 mg PO ONCE PRN 1 Days #1 tab 04/28/24 predniSONE [Deltasone] 20 mg PO BID 04/28/24
== END ==
LOC: PNWHC3 14:10
PROVIDERS: ATTEND Specialist
DX: M48.061 Spinal stenosis, lumbar region without neurogenic claudication (principal); M47.816 Spondylosis without myelopathy or radiculopathy, lumbar region; M51.360 Other intervertebral disc degeneration, lumbar region with discogenic back pain only; G89.29 Other chronic pain; Z88.0 Allergy status to penicillin; Z88.1 Allergy status to other antibiotic agents; Z88.2 Allergy status to sulfonamides
CPT/HCPCS: 99211

== ENCOUNTER → 2024-05-17 | Outpatient (CLI) | payer OTHER ==
--- NOTE | 2024-05-17 20:49 | MR ---
INDICATION: Patient age:Male; 38 years old; Reason for study: R10.30, M54.16, M54.50; [facility]. COMPARISONS: MR lumbar spine 06/05/2023. TECHNIQUE: Multi planar, multi sequence imaging was performed utilizing: T1-weighted, T2-weighted, a nd turbo inversion recovery imaging of the lumbar spine. The patient was not given contrast. FINDINGS: The lumbar vertebral bodies do have preserved heights and alignment. Minimal multilevel d isc desiccation is present. Congenital small caliber of the thecal sac size extending from L1 to L5. No abnormal STIR signal. The conus medullaris and the distal spinal cord do appear unremarkable with regards to their signal intensity and morphology. T12-L1: No evidence of significant spinal canal stenosis or neural foraminal stenosis. L1-L2: No evidence of significant spinal canal stenosis or neural foraminal stenosis. L2-L3: Disc bulge and facet joint arthropathy result in mild to moderate central canal stenosis. Mild left and [id number] right neural foraminal stenosis. L3-L4: Disc bulge and facet joint arthropathy result in mild to moderate central canal stenosis. Mode rate bilateral neural foraminal stenosis. L4-L5: Disc bulge and facet joint arthropathy result in mild central canal stenosis. Moderate bilater al neural foraminal stenosis. L5-S1: Minimal broad-based disc bulge without significant effacement of the anterior thecal sac. No s ignificant central canal stenosis. Bilateral facet arthropathy with minimal bilateral neural foramina l stenosis. Other significant findings: None. IMPRESSION: Similar multilevel disc degeneration with associated osteoarthritic changes from prior MRI 06/05/2023. No disc herniation. [facility], , 05/17/2024 8:46 PM
== END | disposition home or self-care (01) ==
LOC: RADMRIMAIN 19:24
PROVIDERS: ATTEND Orthopaedic Surgery
DX: M47.26 Other spondylosis with radiculopathy, lumbar region (principal); M51.16 Intervertebral disc disorders with radiculopathy, lumbar region; R10.30 Lower abdominal pain, unspecified
CPT/HCPCS: 72148

== ENCOUNTER 2024-05-19 07:51 | Day surgery (SDC) | payer OTHER ==
[2024-05-19] MEDS ORDERED: LACTATED RINGERS 1,000 ML IV SCH (09:18)
[2024-05-19 09:36] VITALS: TEMP 97.4
[2024-05-19] MEDS ORDERED: methylPREDNISolone ACETATE 80 MG/ML 1 ML VIAL ONE (10:22)
[2024-05-19] MEDS ORDERED: IOPAMIDOL M300 15ML VIAL ONE (10:22)
--- NOTE | 2024-05-19 10:42 | P.PCN ---
Description of Procedure: PREOPERATIVE DIAGNOSIS: 1- Lumbar Degenerative Disc Diseases 2-Lumbar spondylosis with Facet arthropathy without myelopathy. 3-lumbar spinal stenosis POSTOPERATIVE DIAGNOSIS: 1-lumbar degenerative disc disease. 2-lumbar spondylosis with facet arthropathy without myelopathy. 3-lumbar spinal stenosis. PROCEDURE Injection of radio contrast material into L4-5 interspace, interpretation of epidurogram, injection of steroid at L4- 5 epidural space under fluoroscopic guidance. ANESTHESIA: Lidocaine 1% subcutaneously. In OR continuous pulse ox, EKG, blood pressure and verbal communication was maintained with the patient. EBL: Minimal PROCEDURE INDICATION: Before the procedure were discussed with the patient detailed procedure, alternatives, complications including infection, bleeding, nerve damage, paralysis all of which could be permanent. Patient understands and all questions were answered. PROCEDURE DESCRIPTION : After getting consent, patient in OR in prone position. Back was prepped with chlorhexidine and draped in sterile fashion. After injecting 10 mL of 1% lidocaine subcutaneously, a 20-gauge Tuohy needle was introduced at L4 5 interspace with loss of resistance technique using a syringe filled with air. Negative CSF, negative blood, negative paresthesia. Needle position was confirmed with AP and lateral view of the fluoroscope. After repeat negative aspiration 2 mL of Omnipaque 200 water soluble contrast was injected. Contrast was noted in the epidural space. No contrast was noted into intrathecal or intravascular space. After repeat negative aspiration 6 mL solution was injected intermittently which consists of 5 mL of preservative-free normal saline mixed with 1 mL of 80 mg Depo-Medrol. Needle was withdrawn intact. Skin was cleansed and Band-Aids was applied. DISPOSITION / PLANS: The patient tolerated the procedure well. No complication. The patient was placed in a supine position and transferred to the recovery area in a stable condition for observation. There was no evidence of lower extremity motor or sensory deficit after the procedure. Patient was discharged from the recovery room after meeting discharge criteria. Home discharge instructions were given to the patient by the staff. The patient was reexamined prior to discharge. The patient will schedule a follow up in the clinic in 2-4 weeks.
--- NOTE | 2024-05-19 10:44 | FL ---
EXAMINATION TYPE: FL guided pain mgmt statistic Intraoperative/procedural fluoroscopic services were provided. CLINICAL INDICATION:Male, 38 years old with history of LUMBAR EPI; , [facility] FINDINGS: Single fluoroscopic image demonstrating lumbar epidural injection. No radiographic evidence for compl ication. Total fluoroscopy time is 8.3 seconds. DAP: [id number] mGym2 Please see the operative/procedural note for further details. [facility], , 05/19/2024 10:41 AM
[2024-05-19 11:07] VITALS: BP 116/75; PULSE 85; RESP 16
== END 2024-05-19 11:08 | disposition home or self-care (01) ==
LOC: ORPAIN 07:51
PROVIDERS: ATTEND Pain Medicine Interventional Pain Medicine
DX: M48.061 Spinal stenosis, lumbar region without neurogenic claudication (principal); M47.816 Spondylosis without myelopathy or radiculopathy, lumbar region; M51.369 Other intervertebral disc degeneration, lumbar region without mention of lumbar back pain or lower extremity pain; Z88.0 Allergy status to penicillin; Z88.2 Allergy status to sulfonamides; Z88.1 Allergy status to other antibiotic agents
CPT/HCPCS: 62323; Q9967; J1010

== ENCOUNTER 2024-05-25 12:17 | Emergency (ER) | payer OTHER ==
--- NOTE | 2024-05-25 13:00 | ED ---
Back Pain HPI - General Chief Complaint: Back Pain/Injury Stated Complaint: back pain, headache Time Seen by Provider: 05/25/24 12:59 Source: patient, RN notes reviewed, old records reviewed Limitations: no limitations - History of Present Illness Initial Comments: 38-year-old male presented to ER for evaluation of back pain. Patient has known lumbar degenerative disc disease with lumbar spinal canal stenosis and is following up with . Patient states on 05-19-2024 he underwent lumbar spine epidural for pain control. Upon further chart review, patient received Depo-Medrol injection. Patient states since injection he has been noticing an increase in pain and a headache. He states the headache does relief with laying supine and increases with ambulation and sitting up. He states it is a pressure headache. He admits to mild nausea given pain but denies any visual disturbances, lightheadedness, dizziness, vomiting. He has tried to drink plenty of water and caffeine without relief of symptoms. He states he has been wearing his hat tighter than normal to help with discomfort. Patient also reports an increase in back pain since injections. Patient does report his legs will go "numb" especially with ambulation and while at work. 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 He states he will sit down and this will improve. Patient does report mild radiation of pain to left lower extremity. He denies any bowel or bladder incontinence, saddle paresthesias, fevers or history of IV drug abuse. Patient called orthopedics and pain management today who told him to come to the emergency department for possible blood patch. Patient has no other complaints at this time. - Related Data Home Medications Medication Instructions Recorded Confirmed Diphenox-Atrop 2.5-0.025 mg 1 tab PO TID PRN 11/03/19 05/19/24 [Lomotil] Metaxalone [Skelaxin] 800 mg PO HS 01/25/20 05/19/24 Rizatriptan Odt [Maxalt PAVING [employer]OR] 10 mg PO DAILY PRN 01/25/20 05/19/24 Citalopram Hydrobromide [CeleXA] 1 tab PO DAILY 04/28/24 05/19/24 Cyclobenzaprine [Flexeril] 1 tab PO TID PRN 04/28/24 05/19/24 Gabapentin [Neurontin] 1 capsule PO DIRECTED 04/28/24 05/19/24 Metoprolol Tartrate 1 tab PO DAILY 04/28/24 05/19/24 diazePAM [Valium] 10 mg PO ONCE PRN 05/19/24 05/19/24 Previous Rx's Medication Instructions Recorded Ascorbic Acid [Vitamin C] 1,000 mg PO DAILY #30 tab 01/27/20 Cholecalciferol [Vitamin D3 (25 1,000 unit PO DAILY #30 tab 01/27/20 Mcg = 1000 Iu)] Allergies Allergy/AdvReac Type Severity Reaction Status Date / Time amoxicillin Allergy Rash/Hives Verified 05/25/24 12:28 azithromycin Allergy Rash/Hives Verified 05/25/24 12:28 Penicillins Allergy Unknown Verified 05/25/24 12:28 Childhood sulfamethoxazole Allergy Rash/Hives Verified 05/25/24 12:28 [From Bactrim] trimethoprim [From Bactrim] Allergy Rash/Hives Verified 05/25/24 12:28 Review of Systems ROS Statement: Those systems with pertinent positive or pertinent negative responses have been documented in the HPI. ROS Other: All systems not noted in ROS Statement are negative. Past Medical History Past Medical History: No Reported History Additional Past Medical History / Comment(s): frequent diarrhea, seasonal allergies History of Any Multi-Drug Resistant Organisms: None Reported Past Surgical History: No Surgical Hx Reported Additional Past Surgical History / Comment(s): EGD/colonoscopy Past Anesthesia/Blood Transfusion Reactions: No Reported Reaction Past Psychological History: No Psychological Hx Reported Smoking Status: Former smoker Past Alcohol Use History: None Reported Past Drug Use History: None Reported - Past Family History Father Family Medical History: No Reported History Additional Family Medical History / Comment(s): Father is healthy Mother Family Medical History: No Reported History Additional Family Medical History / Comment(s): Mother is healthy General Exam Limitations: no limitations Course Vital Signs 05/25/24 05/25/24 12:27 14:42 Temperature 98.3 F Pulse Rate 90 67 Respiratory 18 20 Rate Blood Pressure 109/64 O2 Sat by Pulse 98 99 Oximetry - Reevaluation(s) Reevaluation #1: 05/25/24 14:47 Patient reevaluated. Patient resting comfortably on stretcher no signs of acute distress. Patient reporting headache has resolved. Low back pain is has improved. Patient feels comfortable with discharge at this time. Medical Decision Making - Medical Decision Making Was pt. sent in by a medical professional or institution (, PA, DRYWALL APPLICATION SUPERVISOR, urgent care, hospital, or senior living...) When possible be specific @ -[No] Did you speak to anyone other than the patient for history (EMS, parent, family, police, friend...)? What history was obtained from this source @ -[No] Did you review nursing and triage notes (agree or disagree)? Why? @ -[I reviewed and agree with nursing and triage notes] Were old charts reviewed (outside hosp., previous admission, EMS record, old EKG, old radiological studies, urgent care reports/EKG's, senior living records)? Report findings @ -Yes, I reviewed procedure note completed on 05-19-2024. Patient had epidural injection completed. Patient was injected with Depo-Medrol. I also reviewed MRI completed on 05 17 24 showing similar multilevel disc degeneration associate with osteoarthritic changes from prior MRI completed 06-05-2023. No disc herniation. Differential Diagnosis (chest pain, altered mental status, abdominal pain women, abdominal pain men, vaginal bleeding, weakness, fever, dyspnea, syncope, headache, dizziness, GI bleed, back pain, seizure, CVA, palpatations, mental health, musculoskeletal)? @ -Differential Back Pain:Strain, zoster, cauda equina syndrome, epidural abscess, vertebral osteomyelitis, discitis, fracture, subluxation, disc herniation, DJD, spinal stenosis, dissection, AAA, pancreatitis, peptic ulcer disease, pyelonephritis, kidney stone, this is not meant to be an all-inclusive list. EKG interpreted by me (3pts min.). @ -[None done] X-rays interpreted by me (1pt min.). @ -[None done] CT interpreted by me (1pt min.). @ -[CT lumbar spine showing mild degenerative disc disease at L2-L3 and L3 and L4. Eccentric disc bulge at L4-L5 level on the left compromising the left lateral rectus and possibly at the neuroforamina. Minimal spinal canal stenosis at L3-L4. Facet arthropathy at the L4-L5 level on the left.] U/S interpreted by me (1pt. min.). @ -[None done] What testing was considered but not performed or refused? (CT, X-rays, U/S, labs)? Why? @ -[None] What meds were considered but not given or refused? Why? @ -[None] Did you discuss the management of the patient with other professionals (professionals i.e. , PA, DRYWALL APPLICATION SUPERVISOR, lab, RT, psych nurse, psychiatric social worker supervisor, supervisor inspection department, teacher, accounts officer, human services case manager)? Give summary @ -[No] Was smoking cessation discussed for >3mins.? @ -[No] Was critical care preformed (if so, how long)? @ -[No] Were there social determinants of health that impacted care today? How? (Homelessness, low income, unemployed, alcoholism, drug addiction, transportation, low edu. Level, literacy, decrease access to med. care, alf, rehab)? @ -[No] Was there de-escalation of care discussed even if they declined (Discuss DNR or withdrawal of care, Hospice)? DNR status @ -[No] What co-morbidities impacted this encounter? (DM, HTN, Smoking, COPD, CAD, Cancer, CVA, ARF, Chemo, Hep., AIDS, mental health diagnosis, sleep apnea, morbid obesity)? @ -Back pain Was patient admitted / discharged? Hospital course, mention meds given and route, prescriptions, significant lab abnormalities, going to OR and other pertinent info. @ -Discharge. Undiagnosed new problem with uncertain prognosis? @ -[No] Drug Therapy requiring intensive monitoring for toxicity (Heparin, Nitro, Insulin, Cardizem)? @ -[No] Were any procedures done? @ -[No] Diagnosis/symptom? @ -[default] Acute, or Chronic, or Acute on Chronic? @ -[default] Uncomplicated (without systemic symptoms) or Complicated (systemic symptoms)? @ -[default] Side effects of treatment? @ -[No] Exacerbation, Progression, or Severe Exacerbation? @ -[No] Poses a threat to life or bodily function? How? (Chest pain, USA, OR, pneumonia, PE, COPD, DKA, ARF, appy, cholecystitis, CVA, Diverticulitis, Homicidal, Suicidal, threat to staff... and all critical care pts) @ -[No] - Lab Data Result diagrams: 05/25/24 13:38 05/25/24 13:38 Lab Results 05/25/24 05/25/24 Range/Units 13:38 13:38 WBC 9.2 (3.8-10.6) k/uL RBC 5.38 (4.30-5.90) m/uL Hgb 16.5 (13.0-17.5) gm/dL Hct 49.2 (39.0-53.0) % MCV 91.4 (80.0-100.0) fL MCH 30.6 (25.0-35.0) pg MCHC 33.5 (31.0-37.0) g/dL RDW 12.6 (11.5-15.5) % Plt Count 228 (150-450) k/uL MPV 6.9 Neutrophils % 67 % Lymphocytes % 26 % Monocytes % 5 % Eosinophils % 1 % Basophils % 0 % Neutrophils # 6.2 (1.3-7.7) k/uL Lymphocytes # 2.3 (1.0-4.8) k/uL Monocytes # 0.5 (0-1.0) k/uL Eosinophils # 0.1 (0-0.7) k/uL Basophils # 0.0 (0-0.2) k/uL Sodium 137 (137-145) mmol/L Potassium 4.0 (3.5-5.1) mmol/L Chloride 98 (98-107) mmol/L Carbon Dioxide 30 (22-30) mmol/L Anion Gap 9 mmol/L BUN 14 (9-20) mg/dL Creatinine 0.66 (0.66-1.25) mg/dL Est GFR (CKD-EPI)AfAm >90 (>60 ml/min/1.73 sqM) Est GFR (CKD-EPI)NonAf >90 (>60 ml/min/1.73 sqM) Glucose 88 (74-99) mg/dL Calcium 9.5 (8.4-10.2) mg/dL Total Bilirubin 0.7 (0.2-1.3) mg/dL AST 25 (17-59) U/L ALT 25 (4-49) U/L Alkaline Phosphatase 91 (38-126) U/L Total Protein 6.9 (6.3-8.2) g/dL Albumin 4.6 (3.5-5.0) g/dL Disposition Clinical Impression: Back pain, chronic, Headache Disposition: HOME SELF-CARE Condition: Stable Instructions (If sedation given, give patient instructions): Acute Low Back P ain (ED) Additional Instructions: Follow-up with pain management and Dr. Gutierrez. Return to the ER for any new or worsening concerns. Is patient prescribed a controlled substance at d/c from ED?: No Referrals: Valdo Cope MD [Primary Care Provider] - 1-2 days Dandy Gutierrez DO [Doctor of Osteopathic Medicine] - 1-2 days Time of Disposition: 14:47
[2024-05-25] MEDS: SODIUM CHLORIDE 0.9% 1,000 ML IV ONE (13:36)
[2024-05-25] MEDS: ACETAMINOPHEN TAB 325 MG TAB PO STA (13:37)
[2024-05-25 13:53] LABS: Basophils % (A) 0 %; Eosinophils # (A) 0.1 k/uL (0-0.7); Eosinophils % (A) 1 %; HCT 49.2 % (39.0-53.0); HGB 16.5 gm/dL (13.0-17.5); Lymphocytes # (A) 2.3 k/uL (1.0-4.8); Lymphocytes % (A) 26 %; MCH 30.6 pg (25.0-35.0); MCHC 33.5 g/dL (31.0-37.0); MCV 91.4 fL (80.0-100.0); Mean Platelet Volume 6.9; Monocytes # (A) 0.5 k/uL (0-1.0); Monocytes % (A) 5 %; Neutrophils # (A) 6.2 k/uL (1.3-7.7); Neutrophils % (A) 67 %; Platelet Count 228 k/uL (150-450); RBC 5.38 m/uL (4.30-5.90); RDW 12.6 % (11.5-15.5); WBC 9.2 k/uL (3.8-10.6)
[2024-05-25 13:55] LABS: ALT 25 U/L (4-49); AST 25 U/L (17-59); African American GFR (CKD) >90 (>60 ml/min/1.73 sqM); Albumin 4.6 g/dL (3.5-5.0); Alkaline Phosphatase 91 U/L (38-126); Anion Gap 9 mmol/L; Blood Urea Nitrogen 14 mg/dL (9-20); Calcium 9.5 mg/dL (8.4-10.2); Carbon Dioxide 30 mmol/L (22-30); Chloride 98 mmol/L (98-107); Glucose 88 mg/dL (74-99); Non-African American GFR(CKD) >90 (>60 ml/min/1.73 sqM); Sodium 137 mmol/L (137-145); Total Bilirubin 0.7 mg/dL (0.2-1.3); Total Protein 6.9 g/dL (6.3-8.2)
[2024-05-25] MEDS: METOCLOPRAMIDE 5 MG/ML 2 ML VIAL IVP STA (14:12)
[2024-05-25] MEDS: diphenhydrAMINE 50 MG/ML 1 ML VIAL IVP STA (14:12)
--- NOTE | 2024-05-25 14:17 | CT ---
EXAMINATION TYPE: CT brain wo con DATE OF EXAM: 05/25/2024 COMPARISON: None CLINICAL INDICATION: Male, 38 years old with history of headache s/p epidural 05/19; [facility], HEADACHE CT DLP: 1097 mGycm Automated exposure control for dose reduction was used. Findings: The ventricles, basal cisterns and sulci over the convexities are within normal limits and there is n o mass effect or shift of midline structures. No abnormal density is seen throughout the brain parenchyma and there is no acute intra or extra-axia l hemorrhage. The posterior fossa including the brainstem, fourth ventricle and cerebellar pontine angles appear no rmal. Intraorbital contents appear normal and symmetric. Visualized paranasal sinuses and mastoid air cells are well aerated. The calvarium is intact. IMPRESSION: No significant abnormality seen. There is no acute bleed or mass effect. [facility], , 05/25/2024 2:14 PM
--- NOTE | 2024-05-25 14:23 | CT ---
EXAMINATION TYPE: CT lumbar spine wo con DATE OF EXAM: 05/25/2024 2:07 PM COMPARISON: None CLINICAL INDICATION: Male, 38 years old with history of back pain s/p epidural; [facility], BACK PAIN TECHNIQUE: Unenhanced CT of the lumbar spine was performed. Bone and soft tissue window settings are submitted as well as coronal and sagittal reconstructions. CT DLP: [address] CTDI: mGy Automated exposure control for dose reduction was used. FINDINGS: The lumbar vertebral segments are normal in height and alignment and there is no fracture or subluxat ion. There is mild degenerative disease at the L2-3 and L3-4 level where there is mild disc space narrowin g and spondylosis.. There is a broad-based eccentric disc bulge at the L4-5 disc to the left of midline mildly compromisi ng the left lateral recess and possibly the left L4-5 neural foramina. At the L3-4 level, secondary to circumferential disc bulge and mild thickening of ligamentum flavum, there is a minimal spinal stenosis. The visualized sacrum and SI joints are normal. There is mild facet arthropathy at the L4-5 level on the left. IMPRESSION: 1. Mild degenerative disease at the L2-3 and L3-4 levels 2. Eccentric disc bulge at the L4-5 level on the left compromising the left lateral recess and possib ly the neuroforamina as described above. 3. Minimal spinal stenosis at the L3-4 level. 4. Facet arthropathy at the L4-5 level on the left. [facility], Workstation: MILAN 05/25/2024 2:21 PM
[2024-05-25 14:42] VITALS: RESP 20
[2024-05-25 15:01] VITALS: BP 126/78; PULSE 86; TEMP 98.1
== END 2024-05-25 15:01 | disposition home or self-care (01) ==
LOC: EC 12:17
DX: G89.29 Other chronic pain (principal); M54.9 Dorsalgia, unspecified; R51.9 Headache, unspecified; Z88.0 Allergy status to penicillin; Z88.1 Allergy status to other antibiotic agents; Z88.2 Allergy status to sulfonamides; Z87.891 Personal history of nicotine dependence
CPT/HCPCS: 36415; 80053; 85025; 72131; 70450; 99284; 96374; 96375; J1200; J2765

== ENCOUNTER → 2024-06-06 | Outpatient (CLI) | payer OTHER ==
[2024-06-06 13:57] VITALS: BP 123/84; PULSE 91; RESP 16
--- NOTE | 2024-06-06 15:25 | P.PAINPG ---
PQRS Measure Charge Sheet Comment: A 38 yr old male with a history of severe and chronic LBP secondary to radiu=culopathy, spondylosis with facet arthropathy without myelopathy presents today for evaluation s/p DAVID L4-L5 #1. Pt states he experienced 75% pain relief x 2 wks s/p procedure. Pain level is provoked at 1 /10 in intensity, constant, predominantly axial, localized in the lumbar spine, dull in character without shooting pain. Pain is provoked by bending. Pain is alleviated with injections, physician guided home exercises 5-6 times weekly since late Mar 2024, heat, medications, repositioning and rest. Interventional pain procedures completed include DAVID L4-L5 x1 Patient is currently on Neurontin, Flexeril Patient denies any side effects of the medication(s), denies excessive drowsiness or sleepiness, denies suicidal ideation and reports that the current pain medication is helping to control the pain and improve activities of daily living. Patient denies any motor or sensory deficits. Patient denies any fever or night sweats, denies any change in the bowel movements or urination. Physical Examination: -Constitutional: Cooperative. Not in acute distress . - Neurologic: Cranial nerve II to XII intact. No focal neurological deficits. - Psychatric: Alert & oriented x 3. Matching mood & appropriate affect. Judgment and insight intact. - Musculoskeletal: Cervical spine: Muscle bulk/ tone/ strength in the bilateral upper extremities normal Vertebral body tenderness to palpation over Spurling test positive Distraction test positive Facet loading test positive TTP Thoracic spine Muscle bulk / tone/ strength in the bilateral paraspinal muscles normal Vertebral body tender to palpation over Facet loading test positive TTP Lumbar spine: Motor bulk/ tone/ strength lower extremities , thigh and legs : 5/5 Deep tendon reflexes : Normal Knee Jerk. Normal Ankle Jerk . Vertebral body tenderness to palpation over Subramanian Test positive BL L4-L5 Lumbar Facet Loading Test positive Straight Leg Raise: positive at 30 degrees right side/ left side Gaenslen's Test positive Sacral spine : Severe tenderness over the Sacroiliac joint: right side / left side Range of motion: Flexion of the lumbar spine <60 degrees Range of motion: Extension of the lumbar spine <20 degrees Gaenslen's Test positive right side / left side Crista test: positive right side / left side Thigh Thrust Test positive right side / left side Sacral Thrust Test positive right side / left side Assessment and plan: Chronic LBP secondary to lumbar radiculopathy, spondylosis with facet arthropathy without myelopathy Lifting restrictions up to 40 lbs for next 4 wks, documentation provided. Will manage residual pain and may RTC on an as needed basis. All questions answered. I have spent less than 30 minutes on patient care today. Dr Newberry was available by phone for the evaluation of this patient. The time was used to review the medical records including relevant urine studies and Prescription history (MAPs), review of the available imaging, evaluation and examination of the patient, coordination of care with the medical staff and if applicable referring physicians, as well as creation of the medical record PQRS Narrative: Smoking Status Never smoker Hx Alcohol Use (MH) No Home Medications: Ambulatory Orders Diphenox-Atrop 2.5-0.025 mg [Lomotil] 1 tab PO TID PRN 11/03/19 Metaxalone [Skelaxin] 800 mg PO HS 01/25/20 Rizatriptan Odt [Maxalt RN CHILD] 10 mg PO DAILY PRN 01/25/20 Ascorbic Acid [Vitamin C] 1,000 mg PO DAILY #30 tab 01/27/20 Cholecalciferol [Vitamin D3 (25 Mcg = 1000 Iu)] 1,000 unit PO DAILY #30 tab 01/27/20 Citalopram Hydrobromide [CeleXA] 1 tab PO DAILY 04/28/24 Cyclobenzaprine [Flexeril] 1 tab PO TID PRN 04/28/24 Gabapentin [Neurontin] 1 capsule PO DIRECTED 04/28/24 Metoprolol Tartrate 1 tab PO DAILY 04/28/24 diazePAM [Valium] 10 mg PO ONCE PRN 05/19/24 Controlled Substance Measures - Controlled Substance Measures Is patient prescribed a controlled substance at discharge?: No
== END ==
LOC: PNWHC3 13:35
PROVIDERS: ATTEND Specialist
DX: M47.26 Other spondylosis with radiculopathy, lumbar region (principal); G89.29 Other chronic pain; Z88.0 Allergy status to penicillin; Z88.2 Allergy status to sulfonamides; Z88.1 Allergy status to other antibiotic agents
CPT/HCPCS: 99211